=== PATIENT | female | born 1940 | race Caucasian/White ===

== ENCOUNTER 2020-02-24 10:24 | Emergency (ER) | payer MEDICARE, SELFPAY ==
[2020-02-24 10:38] VITALS: BP 159/90; PULSE 62; RESP 16; TEMP 37.2; O2SAT 100
--- NOTE | 2020-02-24 10:54 | ED.GENADULT ---
HPI - General Adult General Chief complaint: Fall Stated complaint: fall Time Seen by Provider: 02/24/20 10:54 Source: patient and RN notes reviewed Mode of arrival: ambulatory Limitations: no limitations History of Present Illness HPI narrative: 79-year-old female presents with complaints of diffused lower back pain for the past 10 days. Aleve, Aspirin (650mg last this morning at 08:00), ice and heat with little to no relief. Fell backwards on buttock 10 days while jumping backwards moving away from a snapping turtle she was trying to move out of harms way. Denies radiating pain, numbness, or tingling. Denies hitting head or loss of consciousness. No upper or lower extremity pain or weakness. Exacerbating factors consist of prolong standing and bending. Denies problems with urinating or having a bowel movement, LBM this am per patient and normal. No flank pain or hematuria or dysuria. The patient reports she have not been diagnosed with COVID-19. The patient reports she is not waiting for the results of a COVID-19 lab test. The patient reports she do not have fever, chills, weakness, fatigue, myalgia, or facial swelling. The patient reports she do not have a new or worsening cough or shortness of breath. Denies chest pain. The patient reports she do not have any rhinorrhea, congestion, sore throat, nausea, vomiting, abdominal pain, and diarrhea. Tolerating po intake well. Denies recent traveling. Denies concerns for COVID-19 or exposures been home since [id number] order except for essential household needs and return home. At this time, patient is not suspected of having COVID-19. Some parts of this dictation were generated by voice recognition software and may contain typographical and/or grammatical inaccuracies. Related Data Home Medications Medication Instructions Recorded Confirmed hydrocortisone valerate 0.2 % 1 applic TOPICAL BID PRN 08/30/19 topical cream hydrochlorothiazide 12.5 mg tablet 12.5 mg PO DAILY 08/31/19 08/31/19 Glucosamine Chondroitin 02/24/20 Prevagen 02/24/20 Probiotic 02/24/20 ciclopirox TOPICAL 02/24/20 Allergies Allergy/AdvReac Type Severity Reaction Status Date / Time No Known Allergies Allergy Unverified 08/30/19 13:43 Review of Systems Review of Systems: Narrative: CONSTITUTIONAL: Denies fever, chills, sweats. EYES: Denies visual changes, redness, discharge. ENT: Denies rhinorrhea, congestion, sore throat, otalgia. CARDIOVASCULAR: Denies chest pain, palpitations, edema. RESPIRATORY: Denies dyspnea, wheezing, cough. GASTROINTESTINAL: Denies abdominal pain, nausea, vomiting, diarrhea. GENITOURINARY: Denies dysuria, hematuria, abnormal discharge. SKIN: Denies rash or itching. MUSCULOSKELETAL: Complains of of diffused lower back pain. Denies joint pain or myalgia. NEUROLOGIC: Denies numbness or focal weakness. PSYCHIATRIC: Denies anxiety or depression. All systems reviewed & are unremarkable except as noted in HPI and below. [facility] Past Medical History Medical History (Updated 02/25/20 @ 00:01 by Rosana Maharaj) Carpal tunnel syndrome Elevated blood sugar Essential hypertension FH: glaucoma Mixed hyperlipidemia Obstructive sleep apnea syndrome Recurrent major depressive disorder, in remission Seasonal allergic rhinitis Surgical History Surgical History (Updated 02/24/20 @ 11:31 by CAROLYN Joaquin) History of carpal tunnel surgery History of hand surgery History of tubal ligation Family History Family History Mother Family history of hypercholesterolemia Family history of Alzheimer's disease Grandparent Family history of glaucoma Father Family history of pancreatic cancer Social History Social History (Updated 02/24/20 @ 11:31 by CAROLYN Joaquin) Smoking status: Never smoker Second hand tobacco smoke exposure: Yes Smoking end date: 09/22/81 Alcohol
== END 2020-02-24 11:21 | disposition home or self-care (01) ==
PROVIDERS: Emergency Provider Nurse Practitioner Family; PCP Family Medicine
DX: M54.5 Low back pain (principal); I10 Essential (primary) hypertension; R73.9 Hyperglycemia, unspecified; G47.33 Obstructive sleep apnea (adult) (pediatric); E78.2 Mixed hyperlipidemia; Z77.22 Contact with and (suspected) exposure to environmental tobacco smoke (acute) (chronic)
CPT/HCPCS: 81003; 99213; G0463

== ENCOUNTER → 2020-06-05 10:28 | Outpatient (CLI) | payer MEDICARE, SELFPAY ==
--- NOTE | ~2020-06-05 | MM_ITS ---
EXAMINATION: MM screening marry BI w john HISTORY: Screening mammogram TECHNIQUE: Craniocaudal and mediolateral oblique 3-D tomosynthesis images were obtained and synthetic 2-D images were generated. CAD analysis was submitted and interpreted. COMPARISON: 03/10/2019, 03/04/2018, 01/06/2017 bilateral digital screening mammogram examinations BREAST PARENCHYMAL COMPOSITION: There are scattered areas of fibroglandular density. FINDINGS: There is a biopsy marker on the left; history of prior benign left breast biopsies. Occasio nal bilateral benign calcifications. There is no evidence of suspicious mass, calcification, or archi tectural distortion to suggest malignancy in either breast. There has been no suspicious interval jordan nge. IMPRESSION: 1. No mammographic evidence of malignancy. 2. Recommend routine screening mammography in one year. BI-RADS Category 2: Benign finding(s). Reviewed, dictated and finalized at location A.
== END ==
PROVIDERS: PCP Family Medicine; Visit Provider Family Medicine
DX: Z12.31 Encounter for screening mammogram for malignant neoplasm of breast (principal)
CPT/HCPCS: 77063; 77067

== ENCOUNTER 2020-07-15 00:41 | Outpatient (CLI) | payer MEDICARE, SELFPAY ==
[2020-07-15 18:05] LABS: SARS-CoV-2 RNA PCR Negative
== END 2020-07-15 00:42 | disposition home or self-care (01) ==
LOC: ANHCOVIDDT 00:41
PROVIDERS: PCP Family Medicine; Visit Provider Internal Medicine Gastroenterology
DX: Z01.812 Encounter for preprocedural laboratory examination (principal); Z20.828 Contact with and (suspected) exposure to other viral communicable diseases
CPT/HCPCS: 87635; C9803; U0003

== ENCOUNTER 2020-07-18 00:28 | Day surgery (SDC) | payer MEDICARE, SELFPAY ==
[2020-07-10 13:03] VITALS: BMI 39.4
[2020-07-18 06:24] VITALS: BP 165/89; PULSE 69; RESP 16; TEMP 36.3; O2SAT 99; BMI 39.6
[2020-07-18] MEDS: LACTATED RINGERS 1,000 ML 150 ML IV CONT (06:34)
--- NOTE | 2020-07-18 07:17 | WPDANESEPPF ---
Anes - Initial Pre Proc Eval Procedure: Operation Date: 07/18/20 07:30 Proposed Procedures p Esophagogastroduodenoscopy and Screening Colonoscopy - Catarino Higginbotham MD Date/Time: 07/18/20 07:17 Surgeon: Catarino Higginbotham MD Pre Op Diagnosis: abd pain, nausea, neoplasm screening Patient Data Age: 79 Gender: F Height: 4 ft 11 in Weight: 88.9 kg Last Vital Signs Temp 97.3 F L 07/18/20 06:24 Pulse 69 07/18/20 06:24 Resp 16 07/18/20 06:24 BP 165/89 H 07/18/20 06:24 Pulse Ox 99 07/18/20 06:24 Allergies Allergy/AdvReac Type Severity Reaction Status Date / Time No Known Allergies Allergy Verified 07/18/20 06:23 Home Medications Medication Instructions Recorded Confirmed Type hydrocortisone valerate 0.2 % 1 applic TOPICAL BID PRN 08/30/19 07/10/20 History topical cream hydrochlorothiazide 12.5 mg tablet 12.5 mg PO DAILY 08/31/19 07/10/20 History losartan 50 mg tablet 50 mg PO DAILY #14 tablet 09/10/19 07/10/20 Rx fenofibrate nanocrystallized 48 mg See Rx Instructions .ROUTE 02/02/20 07/10/20 Rx tablet .COMPLEX #90 tablet rosuvastatin 10 mg tablet See Rx Instructions .ROUTE 02/02/20 07/10/20 Rx .COMPLEX #90 tablet Glucosamine Chondroitin 02/24/20 06/14/20 History ciclopirox TOPICAL 02/24/20 06/14/20 History fluoxetine 40 mg capsule 40 mg PO DAILY #90 cap 03/13/20 07/10/20 Rx peg 3350-electrolytes 236 240 ml PO Q10M #4000 ml 05/30/20 06/14/20 Rx gram-22.74 gram-6.74 gram-5.86 gram solution Patient hx anesthesia problems: none Family hx anesthesia problems: none PMFSH Past Medical History Medical History Carpal tunnel syndrome Depression Elevated blood sugar Essential hypertension FH: glaucoma Mixed hyperlipidemia Nausea Obstructive sleep apnea syndrome Recurrent major depressive disorder, in remission Seasonal allergic rhinitis Weight loss Surgical History Surgical History History of carpal tunnel surgery History of hand surgery History of tubal ligation Family History Family History Mother Family history of hypercholesterolemia Family history of Alzheimer's disease Grandparent Family history of glaucoma Father Family history of pancreatic cancer Social History Social History Smoking status: Never smoker Second hand tobacco smoke exposure: Yes Smoking end date: 09/22/81 Alcohol intake: current Substance use: never Substance use type: does not use Living arrangements: alone Gender identity (if verbalized by the patient): Female Spiritual care concerns: No Anes - Eval Final PreProcedure Day of Procedure 07/18/20 07:17 Patient weight: morbidly obese Heart: regular rate and rhythm Lungs: clear to auscultation Airway: Mallampati scale class III Neurological: alert and oriented Last oral intake: >/= 8 hours ASA classification: III Emergent: no Anesthetic plan: proceed Anesthesia type and monitoring: general GIVS and standard monitoring Informed Consent: The patient's anesthetic plan and its attendant risks and benefits were discussed with the patient/family/POA. Questions were solicited and answers provided to the satisfaction of the patient/family/POA.
[2020-07-18] MEDS: BENZOCAINE (*SP) 60 ML SPRAY CAN (HURRICAINE) 1 SPRAY MUCOUS MEM (07:38)
--- NOTE | 2020-07-18 07:59 | PM.HPGS ---
History of Present Illness History of Present Illness Consent: Risks, benefits, and alternatives have been discussed and questions answered. Patient agrees to proceed with procedure. Chief complaint: abd pain, nausea, neoplasm screening Narrative: Evie Bates is a 79 year old female with bloating and morning sickness but better daily, also due to have a colonoscopy Review of Systems Constitutional: Constitutional: Denies headache(s) and Denies weakness Eyes: Eyes: Denies blurry vision ENT: Reports Normal hearing present, Denies headache(s) and Denies neck pain Cardiovascular: Cardiovascular: Denies chest pain and Denies dyspnea Respiratory: Respiratory: Denies dyspnea Gastrointestinal: Gastrointestinal: Reports no additional gastrointestinal complaints Genitourinary: Genitourinary: Denies dysuria Musculoskeletal: Musculoskeletal: Denies neck pain Integumentary/Breasts: Skin/Breast: Denies dry skin Neurologic: Reports Normal hearing present, Denies headache(s) and Denies weakness Psychiatric: Psychiatric: Denies anxiety Endocrine: Endocrine: Denies change in body appearance Hematologic/Lymphatic: Hematologic/Lymphatic: Denies easy bleeding Allergic/Immunologic: Allergic/Immunologic: Denies urticaria PMFSH Past Medical History Medical History Carpal tunnel syndrome Depression Elevated blood sugar Essential hypertension FH: glaucoma Mixed hyperlipidemia Nausea Obstructive sleep apnea syndrome Recurrent major depressive disorder, in remission Seasonal allergic rhinitis Weight loss Surgical History Surgical History History of carpal tunnel surgery History of hand surgery History of tubal ligation Family History Family History Mother Family history of hypercholesterolemia Family history of Alzheimer's disease Grandparent Family history of glaucoma Father Family history of pancreatic cancer Social History Social History Smoking status: Never smoker Second hand tobacco smoke exposure: Yes Smoking end date: 09/22/81 Alcohol intake: current Substance use: never Substance use type: does not use Living arrangements: alone Gender identity (if verbalized by the patient): Female Spiritual care concerns: No Meds Home Medications and Allergies Home Medications Medication Instructions Recorded Confirmed Type hydrocortisone valerate 0.2 % 1 applic TOPICAL BID PRN 08/30/19 07/10/20 History topical cream hydrochlorothiazide 12.5 mg tablet 12.5 mg PO DAILY 08/31/19 07/10/20 History losartan 50 mg tablet 50 mg PO DAILY #14 tablet 09/10/19 07/10/20 Rx fenofibrate nanocrystallized 48 mg See Rx Instructions .ROUTE 02/02/20 07/10/20 Rx tablet .COMPLEX #90 tablet rosuvastatin 10 mg tablet See Rx Instructions .ROUTE 02/02/20 07/10/20 Rx .COMPLEX #90 tablet Glucosamine Chondroitin 02/24/20 06/14/20 History ciclopirox TOPICAL 02/24/20 06/14/20 History fluoxetine 40 mg capsule 40 mg PO DAILY #90 cap 03/13/20 07/10/20 Rx peg 3350-electrolytes 236 240 ml PO Q10M #4000 ml 05/30/20 06/14/20 Rx gram-22.74 gram-6.74 gram-5.86 gram solution Allergies Allergy/AdvReac Type Severity Reaction Status Date / Time No Known Allergies Allergy Verified 07/18/20 06:23 Vital Signs Vital Signs - 24 hr 07/18/20 06:24 Temperature 97.3 F L Pulse Rate 69 Respiratory Rate 16 Blood Pressure 165/89 H Pulse Oximetry 99 Exam Const: General: comfortable and no acute distress HENMT: General nose exam: Normal nares present Eyes: General: appearance normal, both eyes and all related structures Neck: Neck: no JVD Resp: Auscultation: clear to auscultation bilaterally Cardio: Rate: regular rate Rhythm: regular rhythm GI:
[2020-07-18 08:01] VITALS: BP 124/60; PULSE 68; RESP 24; O2SAT 94
[2020-07-18 08:11] VITALS: BP 108/61; PULSE 64; RESP 21; O2SAT 97
[2020-07-18 08:21] VITALS: BP 121/70; PULSE 64; RESP 16; O2SAT 96
--- NOTE | 2020-07-18 08:38 | SUR.PHASEII ---
Daughter Kristina attempted to be contacted multiple times. Intra-op nurse attempted x 2 and also left voicemails. Daughter returned voicemail at [id number], states she will be her in 10 minutes. pt waiting in room, provided drink. denies other needs.
== END 2020-07-18 08:49 | disposition home or self-care (01) ==
PROVIDERS: PCP Family Medicine; Visit Provider Internal Medicine Gastroenterology
PROC: 0DJ08ZZ Inspection of Upper Intestinal Tract, Via Natural or Artificial Opening Endoscopic (ICD-10-PCS; CPT 43235; principal; 2020-07-18 07:30)
DX: Z12.11 Encounter for screening for malignant neoplasm of colon (principal); K51.40 Inflammatory polyps of colon without complications; K29.50 Unspecified chronic gastritis without bleeding; K57.30 Diverticulosis of large intestine without perforation or abscess without bleeding; K64.8 Other hemorrhoids; I10 Essential (primary) hypertension; E78.2 Mixed hyperlipidemia; G47.33 Obstructive sleep apnea (adult) (pediatric); F32.5 Major depressive disorder, single episode, in full remission; E66.01 Morbid (severe) obesity due to excess calories; Z68.39 Body mass index [BMI] 39.0-39.9, adult
CPT/HCPCS: 45385; 43239; 88305; 88307; J2704; J7120

== ENCOUNTER → 2021-06-09 08:15 | Outpatient (CLI) | payer MEDICARE, SELFPAY ==
--- NOTE | ~2021-06-09 | MM_ITS ---
EXAMINATION: MM screening marry BI w john HISTORY: Screening mammogram TECHNIQUE: Craniocaudal and mediolateral oblique 3-D tomosynthesis images were obtained and synthetic 2-D images were generated. CAD analysis was submitted and interpreted. COMPARISON: 06/05/2020, 03/10/2019, 03/04/2018 bilateral digital screening mammogram examinations BREAST PARENCHYMAL COMPOSITION: There are scattered areas of fibroglandular density. FINDINGS: There is a biopsy marker on the left; history of prior benign left breast biopsies. Occasio nal benign calcifications. There is no evidence of suspicious mass, calcification, or architectural d istortion to suggest malignancy in either breast. There has been no suspicious interval change. IMPRESSION: 1. No mammographic evidence of malignancy. 2. Recommend routine screening mammography in one year. BI-RADS Category 2: Benign finding(s). Reviewed, dictated and finalized at location A.
== END ==
PROVIDERS: PCP Family Medicine; Visit Provider Family Medicine
DX: Z12.31 Encounter for screening mammogram for malignant neoplasm of breast (principal)
CPT/HCPCS: 77063; 77067

== ENCOUNTER 2021-07-11 14:12 | Outpatient (CLI) | payer MEDICARE, SELFPAY ==
--- NOTE | ~2021-07-11 | US_ITS ---
EXAMINATION: US art doppler w press LE BI DATE: 07/11/2021 14:50 INDICATION: Peripheral vascular disease in the lower limbs. TECHNIQUE: Segmental pressures and plethysmographic and Doppler waveforms of the brachial and lower e xtremity arteries were obtained. COMPARISON: None. FINDINGS: Right and left brachial artery pressures of 130 mm Hg and 149 mm Hg, respectively, are concordant (no rmal difference <= 30 mmHg). The right ankle-brachial index (KAMRON) is 1.22 (normal >= 0.9-1). The right great toe-brachial index (T BI) is 0.66 (normal >= 0.6-0.8). The right lower extremity segmental pressure gradients are normal (n ormal gradients <= 20-30 mmHg between adjacent levels on the same leg or the same levels on the two l egs). Arterial waveforms are triphasic at the right common femoral artery and biphasic in the remaini ng arteries of the right lower limb with brisk systolic upstrokes throughout. The left KAMRON is 1.11. The left TBI is 0.64. The left lower extremity segmental pressure gradients are increased between the left dorsalis pedis artery and the left popliteal and posterior tibial arterie s as well as the contralateral right dorsalis pedis artery. Arterial waveforms are triphasic at the l eft common femoral artery and biphasic in the more distal arteries with brisk systolic upstrokes thro ughout. IMPRESSION: 1. Normal KAMRON's and TBI's bilaterally. No significant arterial occlusive disease. Reviewed, dictated and finalized at location A. IMPRESSION: 1. Normal KAMRON's and TBI's bilaterally. No significant arterial occlusive diseas e.
== END 2021-07-11 14:13 | disposition home or self-care (01) ==
LOC: ANHIMG 14:13
PROVIDERS: PCP Family Medicine; Visit Provider Podiatrist Foot & Ankle Surgery
DX: I73.9 Peripheral vascular disease, unspecified (principal)
CPT/HCPCS: 93923

== ENCOUNTER 2022-08-16 09:55 | Outpatient (CLI) | payer MEDICARE, SELFPAY ==
--- NOTE | ~2022-08-16 | CT_ITS ---
EXAMINATION: CT abdomen pelvis w con DATE: 08/16/2022 10:50 INDICATION: Change in stool caliber TECHNIQUE: Computed tomography (CT) of the abdomen and pelvis was performed with 100 CC Omnipaque 350 intravenous contrast. Automated exposure control and iterative reconstruction technique were employe d. Exam dose: 968.39 mGy-cm total exam DLP. COMPARISON: None. FINDINGS: Right fat-containing foramen of Bochdalek hernia. The lung bases are clear of infiltrate or consolidation. No pericardial or pleural effusion. Small sliding hiatal hernia. There is a huge heterogeneous density mass of the medial segment of the left hepatic lobe and right h epatic lobe; differential diagnosis includes hepatocellular carcinoma, hepatic metastasis, cholangioc arcinoma. There are scattered hepatic probable cysts, measuring up to 10 mm. Calcification at the dependent aspect of the proximal gallbladder may be due to cholelithiasis or les s likely gallbladder wall calcification. No bile duct or pancreatic duct dilatation. No pancreatic mass lesion is evident. Up to 2.9 x 5 cm duodenal diverticulum. Normal morphology of the adrenal glands. Normal splenic size. Up to 10 x 14 mm aortocaval lymph node and 6.4 x 11.9 mm left periaortic lymph node. Small cortical cysts of each kidney. No suspicious renal space-occupying mass lesion or urinary tract calculus or hydroureteronephrosis. The urinary bladder, uterus and adnexal areas are unremarkable. There is atherosclerotic calcification but normal caliber of the abdominal aorta and iliac arteries. Normal appendix. There are numerous diverticula of the sigmoid and descending colon and to a lesser extent the transve rse colon; no CT evidence of diverticulitis. No bowel obstruction or intraperitoneal free air. Small fat-containing umbilical hernia. Severe burst fracture deformity of L4. Diffuse idiopathic skeletal hyperostosis of the thoracic spine. Prominent degenerative change at the apophyseal joints of the lumbar spine. Bilateral hip osteoarthritis. IMPRESSION: Huge heterogeneous mass of medial segment of left hepatic lobe and right hepatic lobe Scattered hepatic cysts Mild periaortic and aortocaval lymphadenopathy Duodenal diverticulum Small renal cortical cysts Diverticulosis of the colon; no CT evidence of diverticulitis Severe burst fracture deformity of L4 Diffuse idiopathic skeletal hyperostosis of the thoracic spine Reviewed, dictated and finalized at Location A. Reviewed, dictated and finalized at location B. ACE MASON
[2022-08-16 10:43] LABS: Estimated Glomerular Filt Rate 31
== END 2022-08-16 09:56 | disposition home or self-care (01) ==
PROVIDERS: PCP Family Medicine; Visit Provider Physician Assistant Medical
DX: R19.5 Other fecal abnormalities (principal); R16.0 Hepatomegaly, not elsewhere classified; R59.0 Localized enlarged lymph nodes; K57.10 Diverticulosis of small intestine without perforation or abscess without bleeding; N28.1 Cyst of kidney, acquired; K57.90 Diverticulosis of intestine, part unspecified, without perforation or abscess without bleeding; S32.041A Stable burst fracture of fourth lumbar vertebra, initial encounter for closed fracture; M48.14 Ankylosing hyperostosis [Forestier], thoracic region
CPT/HCPCS: 74177; Q9967

== ENCOUNTER 2022-08-21 08:48 | Outpatient (CLI) | payer MEDICARE, SELFPAY ==
[2022-08-21 09:59] LABS: Hematocrit 39.1 % (37.0-47.0); Hemoglobin 12.5 g/dL (12.0-15.0); Mean Corpuscular Hemoglobin 28.9 pg (26-34); Mean Corpuscular Volume 90.5 fl (80-100); Mean Platelet Volume 10.5 fl (7.4-10.4); Platelet Count Result 289 k/mm3 (150-375); Red Blood Count 4.32 M/mm3 (4.2-5.4); Red Cell Distribution Width 12.6 % (11.5-14.5); White Blood Count 4.6 K/mm3 (4.5-10.0)
[2022-08-21 10:06] LABS: Alanine Aminotransferase 16 U/L (6-35); Albumin Level 4.4 g/dL (3.5-5.1); Alkaline Phosphatase 44 U/L (38-126); Anion Gap 9 mmol/L (8-16); Aspartate Amino Transferase 44 U/L (14-36); Bilirubin,Total 0.4 mg/dL (0.2-1.3); Blood Urea Nitrogen 16 mg/dL (7-17); Calcium 9.4 mg/dL (8.4-10.2); Carbon Dioxide 21 mmol/L (22-30); Chloride 104 mmol/L (98-107); Estimated Glomerular Filt Rate 33; Glucose 112 mg/dL (65-110); INR 1.1; Potassium 4.4 mmol/L (3.4-5.0); Prothrombin Time 13.4 Seconds (11.1-14.7); Sodium 134 mmol/L (137-145)
[2022-08-26 14:57] LABS: Alpha Fetoprotein Tumor Marker 7.1 ng/mL (<6.1)
== END 2022-08-21 08:49 | disposition home or self-care (01) ==
LOC: ANHLAB 08:49
PROVIDERS: PCP Family Medicine; Visit Provider Nurse Practitioner
DX: R16.0 Hepatomegaly, not elsewhere classified (principal)
CPT/HCPCS: 36415; 80048; 80076; 82105; 85027; 85610

== ENCOUNTER → 2022-08-28 14:29 | Outpatient (CLI) | payer MEDICARE, SELFPAY ==
--- NOTE | ~2022-08-28 | MM_ITS ---
EXAMINATION: MM screening [facility] BI w john HISTORY: Screening mammogram TECHNIQUE: Craniocaudal and mediolateral oblique 3-D tomosynthesis images were obtained and synthetic 2-D images were generated. CAD analysis was submitted and interpreted. COMPARISON: 06/09/2021, 06/05/2020, 03/10/2019 BREAST PARENCHYMAL COMPOSITION: There are scattered areas of fibroglandular density. FINDINGS: No suspicious mass, calcification, or architectural distortion are identified in either gladys ast to suggest malignancy. There has been no suspicious interval change. IMPRESSION: 1. No mammographic evidence of malignancy. 2. Recommend routine screening mammography while the patient remains in good health. BI-RADS Category 1: Negative Reviewed, dictated and finalized at location A. ING JOGGER IMPRESSION: 1. No mammographic evidence of malignancy. 2. Recommend routine screening mammography while the patient remains in good he alth. BI-RADS Category 1: Negative
== END ==
PROVIDERS: PCP Family Medicine; Visit Provider Family Medicine
DX: Z12.31 Encounter for screening mammogram for malignant neoplasm of breast (principal)
CPT/HCPCS: 77063; 77067

== ENCOUNTER 2023-04-06 10:40 | Emergency (ER) | payer MEDICARE, SELFPAY ==
[2023-04-06] VITALS (7 sets, daily range): BP systolic 131–161; BP diastolic 77–87; PULSE 79–87; RESP 12–24; TEMP 36.1; O2SAT 97–100
--- NOTE | ~2023-04-06 | XR_ITS ---
XR chest 1V portable DATE: 04/06/2023 12:14 INDICATION: Epigastric pain. Nausea. TECHNIQUE: Portable AP chest on 04/06/2023 1213 hours COMPARISON: None FINDINGS: Heart size appears within normal range. Is aortic calcification and mild unfolding. Right Port-A-Cath catheter tip overlies superior vena cava. There is minimal atelectasis in the lower lung zones. The lungs otherwise appear clear. No pleural effusion or pulmonary vascular congestion or pneumothorax. There is osteopenia. Degenerative spurring of the thoracic spine. IMPRESSION: Minimal atelectasis at the lung bases Right Port-A-Cath Reviewed, dictated and finalized at location A.
--- NOTE | 2023-04-06 11:54 | ECG_ITS ---
Measurements Intervals [place] Rate: 77 P: 41 OH: 144 QRS: 2 QRSD: 72 T: 22 QT: 372 QTc: 421 Interpretive Statements SINUS RHYTHM BASELINE WANDER- V5-V6 NORMAL ECG NO PREVIOUS ECG AVAILABLE FOR COMPARISON Electronically Signed On 04-06-2023 16:22:45 CDT by Judah Rg D.O.
--- NOTE | 2023-04-06 11:57 | ED.GENADULT ---
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 She reports a dull and achy pain in her epigastrium that is worse after eating. She reports decreased p.o. intake over the past few weeks, worsening over the past 10 days secondary to epigastric pain and fear of pain with eating. She reports nausea, no vomiting. Currently her pain is a 6 out of 10 in the epigastrium. States she came to the ED today because she feels dehydrated due to decreased p.o. intake for the past 2 days. She does report eating almost a full piece of toast with a half a piece of cheese and half a cup of coffee this morning. Patient states she is currently seeing her oncologist Dr. Calloway at [facility] for treatment of cholangiocarcinoma and hepatic adenocarcinoma. She was treated with chemo and radiation starting in October and is currently taking a chemo pill that she started 1 month ago. She has an appointment scheduled in 3 days with her oncologist to discuss if they want to continue the chemo pill given the patient believes that the epigastric pain is worsened since starting this chemo pill. She denies chest pain or shortness of breath, fever, urinary complaints, diarrhea, cough or congestion. States her last CT scan was 6 weeks ago which showed new masses in the liver. Related Data Home Medications Medication Instructions Recorded Confirmed cetirizine 10 mg tablet 10 mg PO DAILY PRN 09/30/22 09/30/22 fluoxetine 40 mg capsule (Prozac) 40 mg PO DAILY 03/31/23 Allergies Allergy/AdvReac Type Severity Reaction Status Date / Time No Known Allergies Allergy Verified 04/06/23 11:34 Review of Systems Review of Systems: CONSTITUTIONAL: Denies fever, chills EYES: Denies visual changes, redness, or discharge. ENT: Denies rhinorrhea, congestion, sore throat, or otalgia. CARDIOVASCULAR: Denies chest pain, palpitations, or edema. RESPIRATORY: Denies cough or dyspnea. GASTROINTESTINAL: See HPI GENITOURINARY: Denies dysuria or hematuria. SKIN: Denies rash or itching. MUSCULOSKELETAL: Denies back pain, joint pain, or myalgia. NEUROLOGIC: Denies headache, numbness, dizziness, or weakness. PSYCHIATRIC: Denies anxiety or depression. [facility] Past Medical History Medical History Bowel habit changes Carpal tunnel syndrome Cholangiocarcinoma CKD (chronic kidney disease) Depression Elevated blood sugar Essential hypertension Family history of pancreatic cancer FH: glaucoma GERD (gastroesophageal reflux disease) Hepatic adenocarcinoma Liver mass Mixed hyperlipidemia Nausea Obstructive sleep apnea syndrome Prediabetes Recurrent major depressive disorder, in remission Seasonal allergic rhinitis Vitamin B12 deficiency Vitamin D deficiency Weight loss Surgical History Surgical History History of carpal tunnel surgery History of hand surgery History of tubal ligation Family History Family History Mother Family history of hypercholesterolemia Family history of Alzheimer's disease Grandparent Family history of glaucoma Father Family history of pancreatic cancer Social History Social History Smoking status: Former smoker Second hand tobacco smoke exposure: Yes Smoking end date: 09/22/81 Alcohol intake: current Substance use: never Substance use type: does not use Lack of Transportation: No Lack of Food: Never True Current Housing: I Have Housing Concerned About Future Housing: No Difficulty Paying Gas/Electric Bills: No Diffi
[2023-04-06] MEDS: ONDANSETRON INJ 4 MG/2 ML VIAL IV PUSH (12:40)
[2023-04-06] MEDS: SODIUM CHLORIDE 0.9% IV 1,000 ML 999 ML IV CONT (12:40)
[2023-04-06] MEDS: BELLADONNA ALK/PHENOB ELIX 10 ML, MAG HYDROX/ALUMINUM HYD/SIMETH 30 ML, LIDOCAINE HCL 2... PO (12:40)
[2023-04-06] MEDS: LORazepam INJ (*CRX) 2 MG/ML VIAL 0.5 MG IV PUSH (12:41)
[2023-04-06] MEDS: FAMOTIDINE 20 MG/2 ML VIAL IV PUSH (12:41)
[2023-04-06] MEDS: HYDROmorphone HCL INJ (*CRX) 1 MG/ML SYR 0.5 MG IV PUSH (12:41)
[2023-04-06 12:45] LABS: Basophils Percent Auto 0.4 % (0.2-1.2); Eosinophils Percent Auto 0.1 % (0-4.4); Hematocrit 36.9 % (37.0-47.0); Hemoglobin 11.7 g/dL (12.0-15.0); Immature Granulocyte Absolute 0.06 K/mm3 (0.00-0.031); Immature Granulocyte Percent A 0.7 % (0-0.5); Lymphocytes Absolute Auto 0.48 K/mm3 (0.9-3.2); Lymphocytes Percent Auto 5.8 % (18.3-44.2); Mean Corpuscular HGB Conc 31.7 g/dl (32-36); Mean Corpuscular Hemoglobin 31.3 pg (26-34); Mean Corpuscular Volume 98.7 fl (80-100); Mean Platelet Volume 10.4 fl (7.4-10.4); Monocytes Absolute Auto 0.4 K/mm3 (0.1-0.6); Monocytes Percent Auto 4.4 % (2.6-8.5); Neutrophils Absolute Auto 7.4 K/mm3 (1.3-6.7); Neutrophils Percent Auto 88.6 % (45.5-73.1); Platelet Count Result 273 k/mm3 (150-375); Red Blood Count 3.74 M/mm3 (4.2-5.4); White Blood Count 8.3 K/mm3 (4.5-10.0)
[2023-04-06 12:55] LABS: Alanine Aminotransferase 16 U/L (6-35); Albumin Level 3.4 g/dL (3.5-5.1); Alkaline Phosphatase 124 U/L (38-126); Anion Gap 8 mmol/L (8-16); Aspartate Amino Transferase 22 U/L (14-36); Blood Urea Nitrogen 17 mg/dL (7-17); Calcium 8.7 mg/dL (8.4-10.2); Carbon Dioxide 22 mmol/L (22-30); Chloride 102 mmol/L (98-107); Estimated Glomerular Filt Rate 60; Glucose 116 mg/dL (65-110); Lipase 162 U/L (23-300); Potassium 4.3 mmol/L (3.4-5.0); Sodium 132 mmol/L (137-145)
[2023-04-06 13:06] LABS: Troponin I < 0.012 ng/mL (0.000-0.034)
[2023-04-06 15:25] LABS: Appearance Urine Cloudy (Clear); Bacteria Urine 3+ /hpf; Bilirubin Urine Negative (Negative); Blood Urine Negative (Negative); Color Urine Dark Yellow (Yellow); Glucose Urine UA Negative (Negative); Ketones Urine Negative (Negative); Leukocyte Esterase Ur Negative LEU/UL (Negative); Nitrate Urine Negative (Negative); Non Pathogenic Casts 0-2; Protein Urine 1+ mg/dL (Negative); RBC Urine 0-2 /hpf (0-2); Specific Grav Ur 1.022 (1.001-1.035); Squamous Epithelial Cell Urine Many /hpf (Few); WBC Urine 0-5 /hpf; pH Urine 6.5 (5.0-9.0)
[2023-04-06 15:30] LABS: Add Urine Microscopic? YES
== END 2023-04-06 17:02 | disposition home or self-care (01) ==
PROVIDERS: Emergency Provider Physician Assistant; PCP Family Medicine
DX: R10.13 Epigastric pain (principal); C22.1 Intrahepatic bile duct carcinoma; I12.9 Hypertensive chronic kidney disease with stage 1 through stage 4 chronic kidney disease, or unspecified chronic kidney disease; N18.9 Chronic kidney disease, unspecified; E78.2 Mixed hyperlipidemia; E53.8 Deficiency of other specified B group vitamins; E55.9 Vitamin D deficiency, unspecified; R73.03 Prediabetes; G47.33 Obstructive sleep apnea (adult) (pediatric); K21.9 Gastro-esophageal reflux disease without esophagitis; F41.9 Anxiety disorder, unspecified; F32.A Depression, unspecified; Z87.891 Personal history of nicotine dependence; Z79.899 Other long term (current) drug therapy
CPT/HCPCS: 36415; 71045; 80053; 81001; 83690; 84484; 85025; 93005; 96361; 96374; 96375; 99284; A9270; J1170; J2060; J2405; J7030

== ENCOUNTER 2023-10-02 12:48 | Outpatient (CLI) | payer MEDICARE, SELFPAY | END 2023-10-02 12:49 | disposition home or self-care (01) | LOC: ANHAUDASC 12:49 | PROVIDERS: PCP Family Medicine; Visit Provider Physician Assistant | DX: H90.3 Sensorineural hearing loss, bilateral (principal) | CPT/HCPCS: 92557; 92567 ==

== ENCOUNTER 2025-04-26 14:11 | Inpatient (IN) | payer MEDICARE, SELFPAY ==
--- NOTE | ~2025-04-26 | US_ITS ---
EXAMINATION: US paracentesis abd w/image DATE: 04/27/2025 14:01 INDICATION: Malignant ascites TECHNIQUE: The procedure and its risks and benefits were discussed with the patient. Potential risks discussed included bleeding and infection. The skin was prepped and draped in sterile fashion. 1% lid ocaine was used for local anesthesia. Under ultrasound guidance, a 5 Fr catheter with trochar was adv anced into the ascites in the left lower quadrant. Fluid was aspirated into vacuum bottles. The [place] ter was removed, and a dressing was applied. There were no immediate complications. FINDINGS: Ultrasound images demonstrate ascites and the catheter within the fluid. IMPRESSION: 1. Successful ultrasound-guided paracentesis yielding 4700 mL of straw-colored fluid. Reviewed, dictated and finalized at location A.
--- NOTE | ~2025-04-26 | CT_ITS ---
EXAMINATION: CT abdomen pelvis wo con DATE: 04/26/2025 15:44 INDICATION: Colitis TECHNIQUE: Computed tomography (CT) of the abdomen and pelvis was performed without intravenous contr ast. The dose-length product was 1112.62 mGy-cm. Automated exposure control and iterative reconstruct ion technique were employed. COMPARISON: CT dated 08/11 01/21 FINDINGS: Small pleural effusions. Large amount of ascites. Large 10.5 x 6.7 cm hepatic mass containi ng internal coarse calcifications, consistent with malignancy until proven otherwise. The spleen, cleaning creas, adrenal glands and kidneys are unremarkable. Nonobstructive bowel gas pattern. Chronic L4 burs t fracture unchanged. No significant vascular abnormality. IMPRESSION: 1. Complex 10.5 cm hepatic mass, consistent with malignancy, most likely primary hepatocellular or me tastatic disease. 2: Large amount of ascites. 3: Small pleural effusions. Reviewed, dictated and finalized at location A. IMPRESSION: 1. Complex 10.5 cm hepatic mass, consistent with malignancy, most likely primar y hepatocellular or metastatic disease. 2: Large amount of ascites. 3: Small pleural effusions.
[2025-04-26 14:36] VITALS: BP 179/93; PULSE 77; RESP 16; TEMP 36.6; O2SAT 100
[2025-04-26] MEDS: ONDANSETRON INJ 4 MG/2 ML VIAL IV PUSH ×2 (14:47→18:18)
[2025-04-26] MEDS: SODIUM CHLORIDE 0.9% IV 1,000 ML 999 ML IV CONT (14:47)
[2025-04-26 14:54] LABS: Hematocrit 35.4 % (37.0-47.0); Hemoglobin 10.9 g/dL (12.0-15.0); Immature Granulocyte Percent A 1.0 % (0-0.5); Lymphocytes Absolute Auto 0.39 K/mm3 (0.9-3.2); Mean Corpuscular HGB Conc 30.8 g/dl (32-36); Mean Corpuscular Hemoglobin 28.4 pg (26-34); Mean Corpuscular Volume 92.2 fl (80-100); Nucleated Red Blood Cells Absolute Auto 0.000 K/mm3 (0.0-0.012); Nucleated Red Blood Cells Perc 0.0 % (0.0-0.2); Platelet Count Result 334 k/mm3 (150-375); Red Blood Count 3.84 M/mm3 (4.2-5.4); White Blood Count 5.7 K/mm3 (4.5-10.0)
--- OUTSIDE RECORDS SUMMARY | 2025-04-26 15:08 | XMS_ITS ---
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 Past Treatment and Therapy Plans ONCOLOGY TREATMENT Plan Name Start Date Discontinue Date Treatment Medications Discontinue Reason Plan Provider Cycles BILIARY TRACT (GEMCITABIN E OXALIPLATIN ) Q14 DAYS 10/23/2022 02/21/2023 gemcitabine (Gemzar)gemciti bine (Gemzar) infusion (38 mg/ml)gemcitibi ne (Gemzar) infusion (powder)oxalipl atin (Eloxatin) Infusion Not Effective Trinh Calloway MD 7 of 12 cycles started Radiation Treatments * Course C2:Liver_ReTx 11/22/2024 - 12/10/2024 Treatment Period Energy Fraction Dose Fractions Total Dose Plans Planned #Liver_Retx1 11/22/2024 - 12/10/2024 15 / 15 5,250 cGy Reference Points Delivered PTV_ReTx 11/22/2024 - 12/10/2024 5,250 cGy * Course C1:Liver_SBRT 12/02/2022 - 12/11/2022 Treatment Period Energy Fraction Dose Fractions Total Dose Plans Planned #Liver_SBRT 12/02/2022 - 12/11/2022 5 / 5 3,500 cGy Reference Points Delivered PTV 12/02/2022 - 12/11/2022 3,500 cGy Lifetime Dose Tracking * Chemical Lifetime Dose Automatic Entry Manual Entr y Dose Length Product 11,336.9 mGy-cm 11,336.9 mGy-cm 0 mGy-cm
--- OUTSIDE RECORDS SUMMARY | 2025-04-26 15:08 | XMS_ITS | Clinical Summary ---
Author Organization [facility] Address [address] [facility] [place] [address] Care Team Providers Care Manager Of Warehouse Name Role Phone Laila Amador MD Primary Care Provider [phone] Trinh Calloway MD Unavailable [phone] Source Comments [facility],non-owned Affiliates and Associated Physician Practices is amultiple site organization consisting of ambulatory clinics and hospital sitesin [place], [place], [place] and [place]. This disclosure is being madepursuant to the Care Everywhere program and may not contain all information available regarding this patient. Last updated 18.[facility] Allergies No known active allergies Medications * Be aware that medications may not be up to date on this document. Alwaysverify current medications with the patient. ergocalciferol (Drisdol) 1.25 MG (36947 UT) capsule Take 1 (one) capsule by mouth every 7 days Active pantoprazole EC (Protonix) 40 MG tablet Take 1 (one) tablet by mouth once daily 90 tablet 3 Active traMADol (Ultram) 50 MG tablet Take 1 (one) tablet by mouth every 6 hours as needed pain 3 Active hydrOXYzine pamoate (Vistaril) 25 MG capsule 4 Active losartan (Cozaar) 50 MG tablet Take 1 (one) tablet by mouth once daily 4 Active FLUoxetine (PROzac) 20 MG capsule Take 3 (three) capsules by mouth once daily Takes 2 daily 4 Active cetirizine (ZyrTEC) 10 MG tablet Active DULoxetine (Cymbalta) 60 MG capsule Take 1 (one) capsule by mouth once daily Active ondansetron, disintegrating, (Zofran ODT) 4 MG tablet Take 1 tablet thirty minutes before each radiation treatment. Then, use 1 tablet every 6 hours as needed for nausea. Allow tablet to dissolve on the tongue. 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 Staging:Clinical stage from 09/12/2022:Stage IIIB(cT2, cN1, cM0) - Signed by Trinh Calloway MD on 02/21/2023 Encounters Date Type Department Care Team Description 04/22/2025 Orders Only [facility] - Hematology/Oncolo gy [address] [place] [phone] Trinh Calloway MD Cholangiocarcinoma (HCC) 03/15/2025 1:01 PM CDT - 03/15/2025 11:59 PM CDT Hospital Encounter [facility] RAD ONC [address] [place] [address] Erica Jang MD Discharge Disposition: Home or Self Care 03/15/2025 11:00 AM CDT Office Visit [facility] - Hematology/On[facility]o gy [address] [place] [phone] Desmond Harris MD Cholangiocarcinoma (HCC) (Primary Dx); Cancer associated pain; Chemotherapy-induced peripheral neuropathy (HCC); Goals of care, counseling/discussion 03/15/2025 Travel 03/08/2025 12:03 PM CDT - 03/08/2025 11:59 PM CDT Hospital Encounter [facility] MRI [address] [place] [address] Erica Jang MD Discharge Disposition: Home or Self Care 03/08/2025 11:29 AM CDT - 03/08/2025 12:02 PM CDT Hospital Encounter [facility] CAT SCAN [address] [place] [address] Erica Jang MD Discharge Disposition: Home or Self Care 03/08/2025 Travel 02/28/2025 Telephone [facility] RAD ONC [address] [place] [address] Tawana Borges RN Future Appointment 02/28/2025 Orders Only [facility] RAD ONC [address] [place] [address] Ronn Landon MD [facility] 02/09/2025 10:40 AM CDT Office Visit [facility] - Hematology/Oncolo gy [address] [place] [phone] Trinh Calloway MD Cholangiocarcinoma (HCC) (Primary Dx); Goals of care, counseling/discussion; Chemotherapy-induced peripheral neuropathy (HCC) 02/09/2025 10:00 AM CDT - 02/09/2025 11:59 PM CDT Hospital Encounter [facility] CANCER CARE DRAWSTATION [address] [facility] [place] [address] Trinh Calloway MD Discharge Disposition: Home or Self Care 02/09/2025 Travel 01/28/2025 Orders Only [facility] - Hematology/Oncolo gy [address] [place] [address] Trinh Calloway MD Cholangiocarcinoma (HCC) from Last 3 Months Family History Medical History Relation Name Comments Cancer - Pancreatic Father Relation Name Status Comments Father Social History Tobacco Use Types Packs/Day Years Used Date Smoking Tobacco: Former Cigarettes Q uit: 1982 Passive Smoke Exposure: Never Smokeless Tobacco: Never Tobacco Cessation:Counseling Given: Not Answered Alcohol Use Standard Drinks/Week Comments Not Currently 1 (1 standard drink = 0.6 oz pur e alcohol) very litte AUDIT-C Answer Date Recorded Q1: How often do you have a drink containing alc ohol? Never 09/04/2023 Average Number of Drinks Not on file 023 Frequency of Binge Drinking Not on file 08/22 PHQ-2 Answer Date Recorded Patient Health Questionnaire-2 Score 4 02/09/2025 Comments No Sex and Gender Information Value Date Recorded Sex Assigned at Not on file Legal Sex Female 10:21 AM CDT Gender Identity Female 12/31/2023 8:55 AM CDT Sexual Orientation Not on file Last Filed Vital Signs Vital Sign Reading Time Taken Comments Blood Pressure 153/86 03/15/2025 1:22 PM CDT Pulse 78 03/15/2025 1:22 PM CDT Temperature 36.2 C (97.1 F) 03/15/2025 1:22 PM CDT Respiratory Rate 18 03/15/2025 1:22 PM CDT Oxygen Saturation 98% 03/15/2025 1:22 PM CDT Inhaled Oxygen Concentration 99% 10/18/2022 8 :50 AM [facility] Weight 82.7 kg (182 lb 6.4 oz) 03/15/2025 1:22 P M CDT Height 147.3 cm (4' 10) 11/10/2024 10:25 AM [facility] Body Mass Index 38.12 11/10/2024 10:25 AM [facility] Plan of Treatment Upcoming Encounters Date Type Department Care Team (Late st Contact Info) Description 06/14/2025 11:00 AM CDT Office Visit [facility] - Hematology/Oncology [address] [place] [phone] Trinh Calloway MD [address] [facility] [address] [place] [address] 07/01/2025 2:00 PM CDT Appointment [facility] CAT SCAN [address] [place] [phone] Erica Jang MD [address] [place] [address] 07/01/2025 2:30 PM CDT Appointment [facility] MRI [address] [place] [address] Erica Jang MD [address] [place], [place] [phone] 07/07/2025 10:30 AM CDT Appointment [facility] RAD ONC [address] [place] [address] Erica Jang MD [address] [place], [place] [phone] Health Maintenance Due Date Last Done Comments BONE DENSITY TESTING 1942 DTAP/TDAP/TD VACCINES (1 - Tdap) 1961 PNEUMOCOCCAL VACCINE 50+ (1 of 2 - PCV) 1961 ZOSTER VACCINE (1 of 2) 1961 Respiratory Syncytial Virus (RSV) Vaccine Pt: or over 60 yrs (1 - 1-dose 75+ series) 2017 COVID-19 VACCINE (2 - Pfizer risk series) 04/25/2022 04/04/2022 MEDICARE AWV CALENDAR YEAR 2024 INFLUENZA VACCINE (#1) 2025 DEPRESSION SCREENING Completed 02/09/2025, 11/20/2022 HEPATITIS B VACCINE Aged Out No longe r eligible based on patient's age to complete this topic HIB VACCINE Aged Out No longer eligi ble based on patient's age to complete this topic HPV VACCINE Aged Out No longer eligi ble based on patient's age to complete this topic MENINGOCOCCAL (Group B) VACCINE SHARED DECISION-MAKING Aged Out No longer eligible based on patient's age to complete this topic MENINGOCOCCAL GROUPS A/C/Y/W VACCINE Aged Out No longer eligible b ased on patient's age to complete this topic Medical Devices Implanted Type Area Sander And Polisher Device Identifier Shelf Expiration Date Model / Serial / Lot Port Implinfn Powerport Clrvu Argd Earnestine Implanted:Qty: 1 on 10/18/2022 at [facility] Right: Chest [employer] 12/21/2023 [id number] / / [id number] Description:IMPLANTED BY DR. LOU Procedures Procedure Name Priority Date/Time Associated Diagnosis Comments MRI ABDOMEN W MRCP WWO CONT W3D Routine 03/08/2025 1:[address] CHEST WO CONTRAST Routine 03/08/2025 11:39 AM CDT Cholangiocarcinoma ALPHA FETOPROTEIN BLOOD TUMOR MARKER STAT 02/09/2025 10:08 AM CDT Cholangiocarcinoma (HCC) COMPREHENSIVE METABOLIC PANEL STAT 02/09/2025 10:08 AM CDT Cholangiocarcinoma (HCC) CBC W AUTO DIFFERENTIAL STAT 02/09/2025 10:08 AM CDT Cholangiocarcinoma (HCC) TSH REFLEX FREE T4 Routine 02/09/2025 10 :08 AM CDT Cholangiocarcinoma (HCC) from Last 3 Months Results * MRI Abdomen W Mrcp Wwo Cont W3D (03/08/2025 1:39 PM CDT) Anatomical Region Laterality Modality Abdomen Magnetic Resonan ce 03/09/2025 9:24 AM CDT Impressions 03/09/2025 10:23 PM CDT Impression: 1.Similar appearance of nodular enhancement at the anterolateral periphery of the treatment cavity, new enhancement at the inferior aspect of the cavity and a new area of intrahepatic biliary ductal dilatation and enhancement in hepatic segment 8. A loop of colon abuts the area of nodular enhancement at the anterior lateral aspect of the treatment cavity without a fat plane to separate them, tumor invasion into this loop of colon cannot be excluded. Overall, multiple findings suggest local disease progression versus less likely posttreatment changes. 2.A few cystic areas in segment 7 are increased in size and now demonstrate mild peripheral enhancement, attention on follow-up is suggested. 3.A few previously seen cystic areas in hepatic segment 7 are increased in size and now demonstrates peripheral enhancement (for example series 16, image 50 and 61), suspicious for metastasis, attention on follow-up is suggested. 4.An extracapsular nodular lesion abutting the lateral surface of the right hemiliver (series 4 image 22) with contrast enhancement and diffusion restriction is suspicious for metastatic disease. 5.Grossly unchanged common bile duct dilation likely related to reservoir effect. Report dictated by Rufino Rod MD (vice president and portfolio manager). I, Ervin Cárdenas MD have personally reviewed and interpreted this examination/study. > Interpreting Provider: Ervin Cárdenas MD on 03/09/2025 10:23 PM Narrative 03/09/2025 10:23 PM CDT PROCEDURE: MRI ABDOMEN W MRCP WWO CONT W3D DATE/TIME OF EXAM: 03/08/2025 1:39 PM CLINICAL INFORMATION: None relevant/not provided if blank. Indication: C22.1: Cholangiocarcinoma (HCC) Additional History: COMPARISON: MRI abdomen 07/14/2024 TECHNIQUE: MRI of the abdomen was performed prior to and following the uneventful administration of 16 mL of Multihance intravenous gadolinium contrast according to standard protocol, including dynamic imaging for MRCP. Image data was analyzed on a dedicated 3-D workstation for the MRCP portion of the exam. Findings: Lower Chest: Normal. Hepatobiliary system Liver morphology: Normal size with smooth surface contour. Steatosis: None. Varices: None. Spleen: Normal. Ascites: Small volume. Focal liver observations A large necrotic mass corresponding to the patient's known treated cholangiocarcinoma is redemonstrated involving hepatic segments 4A/B, 5 and 6. Similar appearance of nodular enhancement along the anterior-lateral periphery of the cavity is seen. This region abuts a loop of colon without a distinct fat plane them (series 6 image 29), tumor invasion into this loop of colon is not entirely excluded. There is increased nodular enhancement at the inferior aspect of the cavity (measuring 3.4 x 1.3 cm, series 16 image 30) and a new area of mild intrahepatic biliary ductal dilatation and enhancement in hepatic segment 8 (3.8 x 2.2 cm, series 16 image 53). A few previously seen cystic areas in hepatic segment 7 are increased in size and now demonstrates peripheral enhancement (for example series 16, image 50 and 61), suspicious for metastatic disease. An extracapsular nodular lesion abutting the lateral surface of the right hemiliver (series 4 image 22) with contrast enhancement and diffusion restriction is suspicious for metastatic disease. Patchy surrounding hyperemia is seen again around the cavity likely related to post-treatment changes. Numerous additional scattered cystic lesions are seen again. Hepatic vasculature Portal and hepatic veins: Patent. Arterial anatomy: Conventional. 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 Retroperitoneum Adrenals: Normal. Kidneys: Scattered renal cysts bilaterally. Lymph nodes: No lymphadenopathy. Gastrointestinal: Colonic diverticulosis and a small hiatal hernia. Otherwise, the imaged bowel and mesentery are normal. Other findings: Multilevel degenerative changes in the visualized spine including old compression fracture deformities in the lumbar spine. MRCP: The gallbladder is surgically absent. There is new mild intrahepatic biliary ductal dilatation within hepatic segment 8, series 16 image 53, concerning for disease recurrence. Grossly unchanged dilation of the common bile duct up to 1.2 cm which likely related to reservoir effect. No filling defect or stricture is seen in the biliary system. The pancreas appears normal. The pancreatic duct is nondilated. Procedure Note Ervin Cárdenas MD - 03/09/2025 PROCEDURE: MRI ABDOMEN W MRCP WWO CONT W3D DATE/TIME OF EXAM: 03/08/2025 1:39 PM CLINICAL INFORMATION: None relevant/not provided if blank. Indication: C22.1: Cholangiocarcinoma (HCC) Additional History: COMPARISON: MRI abdomen 07/14/2024 TECHNIQUE: MRI of the abdomen was performed prior to and following the uneventful administration of 16 mL of Multihance intravenous gadolinium contrast according to standard protocol, including dynamic imaging for MRCP. Image data was analyzed on a dedicated 3-D workstation for theMRCP portion of the exam. Findings: Lower Chest: Normal. Hepatobiliary system Liver morphology: Normal size with smooth surface contour. Steatosis: None. Varices: None. Spleen: Normal. Ascites: Small volume. Focal liver observations A large necrotic mass corresponding to the patient's known treated cholangiocarcinoma is redemonstrated involving hepatic segments 4A/B, 5and 6. Similar appearance of nodular enhancement along the anterior-lateral periphery of the cavity is seen. This region abuts a loop of colonwithout a distinct fat plane them (series 6 image 29), tumor invasion into this loop of colon is not entirely excluded. There is increased nodular enhancement at the inferior aspect of the cavity (measuring 3.4x 1.3 cm, series 16 image 30) and a new area of mild intrahepatic biliary ductal dilatation and enhancement in hepatic segment 8 (3.8 x 2.2 cm, series 16 image 53). A few previously seen cystic areas in hepaticsegment 7 are increased in size and now demonstrates peripheral enhancement (for example series 16, image 50 and 61), suspicious for metastatic disease.An extracapsular nodular lesion abutting the lateral surface of the right hemiliver (series 4 image 22) with contrast enhancement and diffusion restriction is suspicious for metastatic disease. Patchy surrounding hyperemia is seen again around the cavity likelyrelated to post-treatment changes. Numerous additional scattered cystic lesionsare seen again. Hepatic vasculature Portal and hepatic veins: Patent. Arterial anatomy: Conventional. Redemonstrated chronicocclusion/stenosis at the SMA origin. Retroperitoneum Adrenals: Normal. Kidneys: Scattered renal cysts bilaterally. Lymph nodes: No lymphadenopathy. Gastrointestinal: Colonic diverticulosis and a small hiatal hernia. Otherwise, the imaged bowel and mesentery are normal. Other findings: Multilevel degenerative changes in the visualized spine including old compression fracture deformities in the lumbar spine. MRCP: The gallbladder is surgically absent. There is new mild intrahepatic biliary ductal dilatation within hepatic segment 8, series 16 image 53, concerning for disease recurrence. Grossly unchanged dilation of thecommon bile duct up to 1.2 cm which likely related to reservoir effect. Nofilling defect or stricture is seen in the biliary system. The pancreas appears normal. The pancreatic duct is nondilated. Impression: 1.Similar appearance of nodular enhancement at the anterolateralperiphery of the treatment cavity, new enhancement at the inferior aspect of the cavity and a new area of intrahepatic biliary ductal dilatation and enhancement in hepatic segment 8. A loop of colon abuts the area ofnodular enhancement at the anterior lateral aspect of the treatment cavitywithout a fat plane to separate them, tumor invasion into this loop of coloncannot be excluded. Overall, multiple findings suggest local diseaseprogression versus less likely posttreatment changes. 2.A few cystic areas in segment 7 are increased in size and nowdemonstrate mild peripheral enhancement, attention on follow-up is suggested. 3.A few previously seen cystic areas in hepatic segment 7 are increasedin size and now demonstrates peripheral enhancement (for example series 16, image 50 and 61), suspicious for metastasis, attention on follow-up is suggested. 4.An extracapsular nodular lesion abutting the lateral surface of theright hemiliver (series 4 image 22) with contrast enhancement and diffusion restriction is suspicious for metastatic disease. 5.Grossly unchanged common bile duct dilation likely related toreservoir effect. Report dictated by Rufino Rod MD (vice president and portfolio manager). Ervin Harmon MD have personally reviewed and interpreted this examination/study. > Interpreting Provider: Ervin Cárdenas MD on 03/09/2025 10:23 PM Ronn Landon MD MR ORDERABLES Final Re sult * CT Chest Wo Contrast (03/08/2025 11:39 AM CDT) Anatomical Region Laterality Modality Chest Computed Tomogra phy 03/08/2025 2:49 PM CDT Impressions 03/08/2025 2:54 PM CDT IMPRESSION: 1. No chest metastasis. 2. Partially calcified, masslike lesion in the liver likely representing the known liver neoplasm or treatment change. Refer to dedicated abdominal imaging. > Interpreting Provider: Jaylon Chahal MD on 03/08/2025 2:54 PM Narrative 03/08/2025 2:54 PM CDT PROCEDURE: CT CHEST WO CONTRAST DATE/TIME OF EXAM: 03/08/2025 11:39 AM CLINICAL INFORMATION: None relevant/not provided if blank. Indication: C22.1: Cholangiocarcinoma (HCC) Additional History: COMPARISON: 08/28/2023, CT CHEST W LIVER 3 PHASE W PELVIS TECHNIQUE: CT of the chest was performed without intravenous contrast utilizing standard protocol. CT dose reduction technique was used, including Automated Exposure Control. FINDINGS: Central tracheobronchial tree: Clear. Lungs: Clear. Pleura: No significant pleural effusion. No pneumothorax. Heart: Heart is not enlarged. No significant pericardial effusion. There is a right chest wall port with the catheter tip in the superior vena cava. There are coronary artery calcifications. There are calcifications of the mitral annulus. Thoracic aorta is normal in caliber with calcifications. Leigh/mediastinum: No abnormally enlarged hilar or mediastinal lymph nodes by noncontrast technique. Bones: No significant osseous changes. Upper abdomen: Partially evaluated, partially calcified masslike lesion in the liver. Procedure Note Jaylon Chahal MD - 03/08/2025 PROCEDURE: CT CHEST WO CONTRAST DATE/TIME OF EXAM: 03/08/2025 11:39 AM CLINICAL INFORMATION: None relevant/not provided if blank. Indication: C22.1: Cholangiocarcinoma (HCC) Additional History: COMPARISON: 08/28/2023, CT CHEST W LIVER 3 PHASE W PELVIS TECHNIQUE: CT of the chest was performed without intravenous contrast utilizing standard protocol. CT dose reduction technique was used, including Automated ExposureControl. FINDINGS: Central tracheobronchial tree: Clear. Lungs: Clear. Pleura: No significant pleural effusion. No pneumothorax. Heart: Heart is not enlarged. No significant pericardial effusion. Thereis a right chest wall port with the catheter tip in the superior vena cava. There are coronary artery calcifications. There are calcifications ofthe mitral annulus. Thoracic aorta is normal in caliber with calcifications. Leigh/mediastinum: No abnormally enlarged hilar or mediastinal lymphnodes by noncontrast technique. Bones: No significant osseous changes. Upper abdomen: Partially evaluated, partially calcified masslike lesionin the liver. IMPRESSION: 1. No chest metastasis. 2. Partially calcified, masslike lesion in the liver likely representing the known liver neoplasm or treatment change. Refer to dedicatedabdominal imaging. > Interpreting Provider: Jaylon Chahal MD on 03/08/2025 2:54 PM Erica Jang MD CT ORDERABLES Final Result * TSH REFLEX FREE T4 (02/09/2025 10:08 AM CDT) Pathologist [facility] TSH 1.796 0.350 - 4.940 uIU/mL 02/09/2025 11:34 AM CDT [facility] Blood BLOOD SPECIMEN / Unknown Lab Venipuncture / Unknown 02/09/2025 10:08 AM CDT 02/09/2025 10:43 AM CDT Trinh Calloway MD LAB - CHEMISTRY ORDERABLES Zandra l Result [facility] [address] [place] [address], [facility] [phone] * ALPHA FETOPROTEIN BLOOD TUMOR MARKER (02/09/2025 10:08 AM CDT) Pathologist [facility] Alpha-Fetoprote in Tumor Marker <2.0 <=8.3 ng/mL 02/09/2025 11:25 AM CDT [facility] Comment: AFP values will vary depending on testing procedure used. Results are not comparable across different methods. AFP values obtained by [facility] using an Pope Alinity Immunoassay. Blood BLOOD SPECIMEN / Unknown Lab Venipuncture / Unknown 02/09/2025 10:08 AM CDT 02/09/2025 10:42 AM CDT us Trinh Calloway MD LAB - CHEMISTRY ORDERABLES Zandra martinez Result [address] [address], [facility] [phone] * (ABNORMAL) CBC WITH DIFFERENTIAL (02/09/2025 10:08 AM CDT) WBC 7.7 4.0 - 10.7 x10E9/L 02/09/2025 10:50 AM [facility] RBC Count 4.13 3.90 - 5.20 x10E12/L 02/09/2025 10:50 AM [facility] Hemoglobin 11.5(L) 11.9 - 15.8 g/dL 02/09/2025 10:50 AM [facility] Hematocrit 36.6 34.8 - 46.1 % 02/09/2025 10:50 AM [facility] MCV 88.6 80.0 - 98.0 fL 02/09/2025 10:50 AM [facility] MCH 27.8 26.7 - 33.6 pg 02/09/2025 10:50 AM [facility] MCHC 31.4(L) 31.7 - 36.3 g/dL 02/09/2025 10:50 AM [facility] RDW-CV 15.0(H) 11.3 - 14.8 % 02/09/2025 10:50 AM [facility] Platelet Count 321 150 - 420 x10E9/L 02/09/2025 10:50 AM [facility] MPV 10.4 7.8 - 11.4 fL 02/09/2025 10:50 AM [facility] Neutrophil % 73.5 41.0 - 74.0 % 02/09/2025 10:50 AM [facility] Lymphocyte % 11.2(L) 17.0 - 47.0 % 02/09/2025 10:50 AM [facility] Monocyte % 10.3 3.0 - 11.0 % 02/09/2025 10:50 AM [facility] Eosinophil % 3.7 0.0 - 7.0 % 02/09/2025 10:50 AM [facility] Basophil % 0.8 0.0 - 1.6 % 02/09/2025 10:50 AM [facility] Immature Granulocytes % 0.5 0.0 - 1.0 % 02/09/2025 10:50 AM [facility] Neutrophil Absolute 5.62 1.60 - 7.50 x10E9/L 02/09/2025 10:50 AM [facility] Lymphocyte Absolute 0.86(L) 1.00 - 4.40 x10E9/L 02/09/2025 10:50 AM [facility] Monocyte Absolute 0.79 0.15 - 1.00 x10E9/L 02/09/2025 10:50 AM [facility] Eosinophil Absolute 0.28 0.00 - 0.60 x10E9/L 02/09/2025 10:50 AM [facility] Basophil Absolute 0.06 0.00 - 0.13 x10E9/L 02/09/2025 10:50 AM [facility] Blood BLOOD SPECIMEN / Unknown Lab Venipuncture / Unknown 02/09/2025 10:08 AM CDT 02/09/2025 10:43 AM T us Trinh Calloway MD LAB - HEMATOLOGY ORDERABLES Fin al Result [facility] [address] [place] [address], [facility] [phone] * (ABNORMAL) COMPREHENSIVE METABOLIC PANEL (02/09/2025 10:08 AM CDT) BUN 14 7 - 26 mg/dL 02/09/2025 11:34 AM [facility] Creatinine 1.29(H) 0.56 - 0.96 mg/dL 02/09/2025 11:34 AM [facility] Sodium 139 136 - 145 mmol/L 02/09/2025 11:34 AM [facility] Potassium 4.9(H) 3.5 - 4.5 mmol/L 02/09/2025 11:34 AM [facility] Chloride 109(H) 98 - 107 mmol/L 02/09/2025 11:34 AM [facility] CO2 19(L) 22 - 29 mmol/L 02/09/2025 11:34 AM [facility] Glucose 113(H) 70 - 99 mg/dL 02/09/2025 11:34 AM [facility] Calcium 9.3 8.4 - 10.2 mg/dL 02/09/2025 11:34 AM [facility] Protein Total 7.0 6.0 - 8.3 g/dL 02/09/2025 11:34 AM [facility] Albumin 3.2(L) 3.4 - 5.0 g/dL 02/09/2025 11:34 AM [facility] Bilirubin Total 0.4 0.2 - 1.2 mg/dL 02/09/2025 11:34 AM [facility] Alkaline Phosphatase 128 40 - 150 U/L 02/09/2025 11:34 AM [facility] ALT 14 5 - 55 U/L 02/09/2025 11:34 AM [facility] AST 21 5 - 34 U/L 02/09/2025 11:34 AM [facility] Anion Gap 11 6 - 16 02/09/2025 11:34 AM [facility] BUN/Creatinine Ratio 11 7 - 23 02/09/2025 11:34 AM [facility] Osmolality Calculated 289 275 - 295 mOsm/kg 02/09/2025 11:34 AM [facility] Albumin/Globulin Ratio 0.8(L) 1.1 - 2.3 02/09/2025 11:34 AM [facility] eGFR by CKD-EPI 41(L) >=90 mL/min/1.7 3 m2 02/09/2025 11:34 AM CDT [facility] Blood BLOOD SPECIMEN / Unknown Lab Venipuncture / Unknown 02/09/2025 10:08 AM CDT 02/09/2025 10:43 AM CDT Trinh Calloway MD LAB - CHEMISTRY ORDERABLES Zandra martinez Result [facility] [address] [place] [address], [facility] [phone] from Last 3 Months Insurance [employer] MEDICARE ADV HMO & PPO Advance Directives Documents on File Type Date Recorded Patient Certified Rehabilitation Counselor Expl anation Adv Directive/Living Will/POA 10/29/2022 1:30 PM [place] DURABLE POA FOR HLTHCARE Care Teams Manager Of Warehouse Relationship Specialty Start Date End Date Laila Amador MD [address] [place] [address] PCP - General Family Medicine 09/25/22 Trinh Calloway MD [address] [facility] [address] [place] [address] Hematology and Oncology 09/26/22
--- OUTSIDE RECORDS SUMMARY | 2025-04-26 15:08 | XMS_ITS | Encounter Summary ---
Author Organization [facility] Address [address] [facility] [place] [address] Care Team Providers Care Cinder Man Name Role Phone Laila Amador MD Primary Care Provider [phone] Trinh Calloway MD Unavailable [phone] Encounter Details Date Type Department Care Team (Late st Contact Info) Description 04/22/2025 Orders Only [facility] - Hematology/Oncology [address] [place] [address] Trinh Calloway MD [address] [facility] [address] [place] [address] Cholangiocarcinoma (HCC) Social History Tobacco Use Types Packs/Day Years Used Date Smoking Tobacco: Former Cigarettes Q uit: 1982 Passive Smoke Exposure: Never Smokeless Tobacco: Never Alcohol Use Standard Drinks/Week Comments Not Currently [...] AM CDT Sexual Orientation Not on file documented as of this encounter Functional Status * Is person deaf or have serious hearing difficulty? Answer Date of Assessment Author No 09/04/2023 1:48 PM Jean Pierre Black RN * Is person blind or have serious difficulty seeing? Answer Date of Assessment Author No 09/04/2023 1:48 PM Jean Pierre Black RN * Does person have serious difficulty walking/climbing stairs? Answer Date of Assessment Author No 09/04/2023 1:48 PM Jean Pierre Black RN * Does person have difficulty dressing/bathing? Answer Date of Assessment Author No 09/04/2023 1:48 PM Jean Pierre Black RN * Does person have difficulty doing errands alone? Answer Date of Assessment Author No 09/04/2023 1:48 PM Jean Pierre Black RN documented as of this encounter Mental Status * Does person have difficulty concentrating/remembering/making decisions? Answer Entry Date Author No 09/04/2023 1:48 PM Jean Pierre Black RN documented in this encounter Plan of Treatment Upcoming Encounters Date Type Department Care Team (Late st Contact Info) Description 06/14/2025 11:00 AM CDT Office Visit [facility] - Hematology/Oncology [address] [place] [phone] Trinh Calloway MD [address] [facility] [address] [place] [address] 07/01/2025 2:00 PM CDT Appointment [facility] [address] [place] [phone] Erica Jang MD [address] [place] [address] 07/01/2025 2:30 PM CDT Appointment [facility] MRI [address] [place] [phone] Erica Jang MD [address] [place] [address] [phone] 07/07/2025 10:30 AM CDT Appointment [facility] [address] [place] [address] [phone] Erica Jang MD [address] [place] [address] [phone] documented as of this encounter Visit Diagnoses Diagnosis Cholangiocarcinoma (HCC) documented in this encounter Care Teams Cinder Man Relationship Specialty Start Date End Date Laila Amador MD [address] [place] [address] PCP - General Family Medicine 09/25/22 Trinh Calloway MD [address] [facility] [address] [place] [address] Hematology and Oncology 09/26/22 documented as of this encounter
[2025-04-26 15:18] LABS: Alanine Aminotransferase 10 U/L (6-35); Albumin Level 3.4 g/dL (3.5-5.1); Alkaline Phosphatase 88 U/L (38-126); Anion Gap 10 mmol/L (4-12); Aspartate Amino Transferase 28 U/L (14-36); Bilirubin,Total 0.6 mg/dL (0.2-1.3); Blood Urea Nitrogen 24 mg/dL (7-17); Calcium 9.1 mg/dL (8.4-10.2); Carbon Dioxide 24 mmol/L (22-30); Chloride 99 mmol/L (98-107); Estimated Glomerular Filt Rate 24; Glucose 98 mg/dL (65-110); Potassium 4.6 mmol/L (3.4-5.0); Sodium 133 mmol/L (137-145); Total Protein 6.5 g/dL (6.3-8.2)
--- NOTE | 2025-04-26 16:30 | PC.NURSE ---
Dr. Osborn at bedside updating pt. All questions answered.
--- NOTE | 2025-04-26 16:43 | ED.GENADULT ---
HPI - General Adult General Chief complaint: Nausea/Vomiting/Diarrhea Stated complaint: weakness Time Seen by Provider: 04/26/25 14:22 Source: patient Mode of arrival: ambulatory Limitations: no limitations History of Present Illness HPI narrative: 84-year-old with a history of cholangiocarcinoma presents to the ER with the complaints of nausea, vomiting, diarrhea, weakness, poor appetite for last several weeks. Patient states that she has not had chemo since October of this year. Denies any fever or chills. She is scheduled to see oncologist in June of this year at [facility]. Onset (ago): week(s) Exacerbating factors: none Associated symptoms: denies other symptoms Related Data Home Medications ?Medication ?Instructions ?Recorded ?Confirmed ?Last Taken ?Type cetirizine 10 mg tablet 10 mg PO DAILY PRN 09/30/22 04/21/25 Unknown History hydroxyzine HCl 25 mg tablet 25 mg PO BID PRN 04/08/24 04/21/25 Unknown History tramadol 50 mg tablet 50 mg PO Q6H PRN 04/08/24 04/21/25 Unknown History Allergies Allergy/AdvReac Type Severity Reaction Status Date / Time No Known Allergies Allergy Verified 04/21/25 09:22 Review of Systems Review of Systems: All systems reviewed & are unremarkable except as noted in HPI and below Constitutional: Constitutional: Reports no additional constitutional complaints Eyes: Eyes: Reports no additional eye complaints PMFSH Past Medical History Medical History 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 Benign essential tremor Cholangiocarcinoma Hepatic adenocarcinoma Liver mass Bowel habit changes Family history of pancreatic cancer GERD (gastroesophageal reflux disease) Vitamin B12 deficiency Vitamin D deficiency Prediabetes CKD (chronic kidney disease) Weight loss Nausea Depression Carpal tunnel syndrome Elevated blood sugar Essential hypertension FH: glaucoma Mixed hyperlipidemia Obstructive sleep apnea syndrome Recurrent major depressive disorder, in remission Seasonal allergic rhinitis Surgical History Surgical History History of carpal tunnel surgery History of tubal ligation History of hand surgery Family History Family History Mother Family history of hypercholesterolemia Family history of Alzheimer's disease Grandparent Family history of glaucoma Father Family history of pancreatic cancer Social History Social History Smoking status: Former smoker Second hand tobacco smoke exposure: Yes Smoking end date: 09/22/81 Alcohol intake: current Substance use: never Substance use type: does not use Lack of Transportation: No Lack of Food: Never True Current Housing: I Have Housing Concerned About Future Housing: No Difficulty Paying Gas/Electric Bills: No Difficulty Paying for Meds: No Currently Unemployed: No Education: Master's Degree or Higher Difficulty w/ Childcare or Family Care: No Living arrangements: with family Occupation/Education: retired Gender identity (if verbalized by the patient): Female Sexual Orientation (if Verbalized by the Patient): Straight or Heterosexual Spiritual care concerns: No Agree to blood products: Yes Exam Narrative: GENERAL: Well-appearing, well-nourished, and in no acute distress. HEAD: Normocephalic, atraumatic. EYES: PERRLA and EOMI. ENT: Nares clear, Mucous membranes moist. NECK: Supple. CHEST: Clear to auscultation. No respiratory distress. HEART: Regular rate and rhythm. No murmur heard. Normal peripheral pulses. ABDOMEN: Soft, distended, normal active bowel sounds. EXTREMITIES: Normal range of motion. No edema. SKIN: Warm, dry, no rash. NEURO: No focal deficits. Alert and oriented x3. PSYCH: Normal mood and affect. Course Course Emergency Course: Informed patient about her lab work, CT findings. She is not quite sure what she wanted this time. Will consult Oncology at [facility] Discussed with Dr. Dawn Oncology at [facility] , no emergent intervention is required from Oncology stand point ,more symptomatic treatment at this time , pt wants to be admitted for nausea control and IV hydration . Discussed with Hospitalist will accept . Vital Signs Vital signs: Vital Signs Temperature 36.6 C 04/26/25 14:36 Pulse Rate 77 04/26/25 14:36 Respiratory Rate 16 04/26/25 14:36 Blood Pressure 179/93 H 04/26/25 14:36 Pulse Oximetry 100 04/26/25 14:36 Temperature 36.6 C 04/26/25 14:36 Pulse Rate 77 04/26/25 14:36 Respiratory Rate 16 04/26/25 14:36 Blood Pressure 179/93 H 04/26/25 14:36 Pulse Oximetry 100 04/26/25 14:36 Medical Decision Making Medical Records Medical records reviewed: Yes I reviewed the external patient's medical records. Vital Signs Vital Signs: Vital Signs Temperature 36.6 C 04/26/25 14:36 Pulse Rate 77 04/26/25 14:36 Respiratory Rate 16 04/26/25 14:36 Blood Pressure 179/93 H 04/26/25 14:36 Pulse Oximetry 100 04/26/25 14:36 Temperature 36.6 C 04/26/25 14:36 Pulse Rate 77 04/26/25 14:36 Respiratory Rate 16 04/26/25 14:36 Blood Pressure 179/93 H 04/26/25 14:36 Pulse Oximetry 100 04/26/25 14:36 Lab Data Lab results reviewed: Yes I reviewed the patient's lab results. 04/26/25 14:47 04/26/25 14:47 Labs: Lab Results 04/26/25 Range/Units 14:47 WBC 5.7 (4.5-10.0) K/mm3 RBC 3.84 L (4.2-5.4) M/mm3 Hgb 10.9 L (12.0-15.0) g/dL Hct 35.4 L (37.0-47.0) % MCV 92.2 (80-100) fl MCH 28.4 (26-34) pg MCHC 30.8 L (32-36) g/dl RDW 15.5 H (11.5-14.5) % Plt Count 334 (150-375) k/mm3 MPV 10.0 (7.4-10.4) fl Immature Gran % (Auto) 1.0 H (0-0.5) % Neut % (Auto) 81.6 H (45.5-73.1) % Lymph % (Auto) 6.8 L (18.3-44.2) % Mcleod % (Auto) 9.4 H (2.6-8.5) % Eos % (Auto) 0.7 (0-4.4) % Baso % (Auto) 0.5 (0.2-1.2) % Lymph # (Auto) 0.39 L (0.9-3.2) K/mm3 Mcleod # (Auto) 0.5 (0.1-0.6) K/mm3 Eos # (Auto) 0.0 (0-0.3) K/mm3 Baso # (Auto) 0.0 (0.0-0.1) K/mm3 Abs Immat Gran (auto) 0.06 H (0.00-0.031) K/mm3 Absolute Neuts (auto) 4.7 (1.3-6.7) K/mm3 Absolute Nucleated RBC 0.000 (0.0-0.012) K/mm3 Nucleated RBC % 0.0 (0.0-0.2) % Sodium 133 L (137-145) mmol/L Potassium 4.6 (3.4-5.0) mmol/L Chloride 99 (98-107) mmol/L Carbon Dioxide 24 (22-30) mmol/L Anion Gap 10 (4-12) mmol/L BUN 24 H (7-17) mg/dL Creatinine 1.97 H (0.7-1.0) mg/dL Estim Creat Clear Calc Not Reportable Estimated GFR 24 L (59 - ) Glucose 98 (65-110) mg/dL Lactic Acid 1.2 (0.7-2.0) mmol/L Calcium 9.1 (8.4-10.2) mg/dL Total Bilirubin 0.6 (0.2-1.3) mg/dL AST 28 (14-36) U/L ALT 10 (6-35) U/L Alkaline Phosphatase 88 (38-126) U/L Total Protein 6.5 (6.3-8.2) g/dL Albumin 3.4 L (3.5-5.1) g/dL Imaging Data Radiologist's impression: ITS Impressions Abdomen/Pelvis CT 04/26/25 16:24 IMPRESSION: 1. Complex 10.5 cm hepatic mass, consistent with malignancy, most likely primary hepatocellular or metastatic disease. 2: Large amount of ascites. 3: Small pleural effusions. Discharge Plan Discharge Clinical Impression: Cancer, hepatocellular Ascites Qualifiers: Ascites type: malignant Qualified Code(s): R18.0 - Malignant ascites Patient Disposition: Still a Patient Condition: Stable Patient Language: Portuguese Prescriptions: No Action cetirizine 10 mg tablet 10 mg PO DAILY PRN tramadol 50 mg tablet 50 mg PO Q6H PRN hydroxyzine HCl 25 mg tablet 25 mg PO BID PRN duloxetine 60 mg capsule,delayed release(DR/EC) 60 mg PO DAILY Qty: 1 0RF oxycodone 5 mg capsule 5 mg PO Q4H PRN (Reason: pain) Qty: 1 0RF fluticasone propionate 50 mcg/actuation spray,suspension 1 spray intranasal BID Qty: 16 0RF Rx Instructions: administer into each nostril ondansetron HCl 8 mg tablet 8 mg PO Q8H PRN (Reason: nausea and vomiting) Qty: 60 0RF prucalopride 2 mg tablet 2 mg PO DAILY Qty: 30 0RF pantoprazole 40 mg tablet,delayed release (DR/EC) 40 mg PO BID Qty: 60 2RF lorazepam 0.5 mg tablet 0.5 mg PO BID PRN (Reason: anxiety) Qty: 60 1RF triamcinolone acetonide 0.1 % cream 1 applic topical BID Qty: 80 0RF fluoxetine 20 mg capsule 60 mg PO DAILY Qty: 270 2RF ergocalciferol (vitamin D2) 1,250 mcg (50,000 unit) capsule 1,250 mcg PO WEEKLY Qty: 12 3RF losartan 50 mg tablet 50 mg PO DAILY Qty: 90 1RF clobetasol 0.05 % cream 1 applic topical BID Qty: 60 1RF Follow-up/Referrals: Laila Amador MD [Primary Care Provider] - Time of Disposition: 17:46
[2025-04-26 17:00] VITALS: BP 158/79; PULSE 75; RESP 20; O2SAT 97
[2025-04-26 17:45] LABS: Add Urine Microscopic? YES; Appearance Urine Clear (Clear); Glucose Urine UA Negative (Negative); Leukocyte Esterase Ur Negative LEU/UL (Negative); Need Manual Microscopic Reviewed; Nitrate Urine Negative (Negative); Specific Grav Ur 1.028 (1.001-1.035)
--- NOTE | 2025-04-26 17:58 | P.HP_ITS ---
H&P: HPI History of Present Illness Date/Time: 04/26/25 17:58 Chief Complaint: Nausea vomiting and diarrhea Narrative: 84-year-old female past medical history of cholangiocarcinoma, hepatic adenocarcinoma not currently on treatment, hypertension, PATRICIO, presents the hospital with nausea vomiting and diarrhea. Patient is on palliative care. Patient states that she has had nausea vomiting diarrhea for the last several weeks with poor appetite. She has a feeling extremely weak today's she came to the hospital for symptomatic treatment. She is a do not intubate, do not do CPR, and no ICU management. Patient denies fever chills. Lab work shows hemoglobin of 10.9, sodium of 133, BUN of 24, creatinine of 1.96 baseline being around 1.6, GFR 24, UA noninfective. CT abdomen shows complex 10.5 cm hepatic mass, consistent with malignancy, most likely primary hepatocellular or metastatic disease, large amount of ascites and small pleural effusions. Review of Systems Review of Systems: 12 systems were reviewed and are negativ e except for as per HPI. 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 Benign essential tremor Cholangiocarcinoma Hepatic adenocarcinoma Liver mass Bowel habit changes Family history of pancreatic cancer GERD (gastroesophageal reflux disease) Vitamin B12 deficiency Vitamin D deficiency Prediabetes CKD (chronic kidney disease) Weight loss Nausea Depression Carpal tunnel syndrome Elevated blood sugar Essential hypertension FH: glaucoma Mixed hyperlipidemia Obstructive sleep apnea syndrome Recurrent major depressive disorder, in remission Seasonal allergic rhinitis Surgical History Surgical History History of carpal tunnel surgery History of tubal ligation History of hand surgery Family History Family History Mother Family history of hypercholesterolemia Family history of Alzheimer's disease Grandparent Family history of glaucoma Father Family history of pancreatic cancer Social History Social History Smoking status: Former smoker Second hand tobacco smoke exposure: Yes Smoking end date: 09/22/81 Alcohol intake: current Drinks per week: 1 Substance use: unknown Substance use type: does not use Lack of Transportation: YES Lack of Food: Never True Current Housing: I Have Housing Concerned About Future Housing: No Difficulty Paying Gas/Electric Bills: No Difficulty Paying for Meds: No Currently Unemployed: No Education: Bachelor's Degree Difficulty w/ Childcare or Family Care: No Living arrangements: with family Occupation/Education: retired Gender identity (if verbalized by the patient): Female Sexual Orientation (if Verbalized by the Patient): Straight or Heterosexual Spiritual care concerns: No Agree to blood products: Yes Meds Home Medications and Allergies Home Medications ?Medication ?Instructions ?Recorded ?Confirmed ?Type duloxetine 60 mg capsule,delayed 60 mg PO DAILY #1 cap 09/26/23 04/26/25 Rx release tramadol 50 mg tablet 50 mg PO Q6H PRN pain 04/08/24 04/26/25 History fluoxetine 20 mg capsule 60 mg (3 x 20 mg) PO DAILY #270 01/12/25 04/26/25 Rx caps losartan 50 mg tablet 50 mg PO DAILY #90 tabs 03/02/25 04/26/25 Rx lorazepam 0.5 mg tablet 0.5 mg PO BID PRN anxiety #60 tabs 04/21/25 04/26/25 Rx ondansetron HCl 8 mg tablet 8 mg PO Q8H PRN nausea and 04/21/25 04/26/25 Rx vomiting #60 tabs pantoprazole 40 mg tablet,delayed 40 mg PO BID #60 tabs 04/21/25 04/26/25 Rx release ergocalciferol (vitamin D2) 1,250 1,250 mcg PO .COMPLEX 04/26/25 04/26/25 History mcg (50,000 unit) capsule prucalopride 2 mg tablet 2 mg PO DAILY PRN constipation 04/26/25 04/26/25 History Allergies Allergy/AdvReac Type Severity Reaction Status Date / Time No Known Allergies Allergy Verified 04/26/25 19:04 Vital Signs Vital Signs - 24 hr 04/26/25 14:36 04/26/25 17:00 Temperature 97.9 F Pulse Rate 77 75 Respiratory Rate 16 20 Blood Pressure 179/93 H 158/79 H Pulse Oximetry 100 97 Exam Narrative: General: well appearing, appears stated age. HEENT: normocephalic, atraumatic. Mucous membranes moist. EOMI, PERRLA, bilateral sclera anicteric, no conjunctival injection. Neck supple without JVD, lymphadenopathy, or bruit. Respiratory: clear to ascultation bilaterally. No rales/rhonic/wheezes. Cardiovascular: Regular rate and rhythm, normal S1-S2 upon ascultation. No murmurs, rubs, or clicks. PMI is nondisplaced, capillary refill less than 3 second. Abdomen: Distended, no pulsatile masses, No rebound, no guarding. No CVA tenderness, no hepatosplenomegaly. Bowel sounds present to all four quadrants. No high pitch or tinkling sounds, resonant to percussion. Extremities: No cyanosis, clubbing, or edema present. Pulses are palpable 2/2. Active ROM to all four extremities. Neuro: Alert and orientated x 4. PERRLA. Cranial nerves 2-12 intact without focal deficit. Skin: Warm, dry, and intact, without rash, erythema, or lesion. Psych: pleasant, cooperative, normal speech, normal affect, no hallucinations, no dysarthia H&P: Results Labs Labs: Short CBC 04/26/25 Range/Units 14:47 WBC 5.7 (4.5-10.0) K/mm3 Hgb 10.9 L (12.0-15.0) g/dL Hct 35.4 L (37.0-47.0) % Plt Count 334 (150-375) k/mm3 BMP 04/26/25 14:47 Sodium 133 L Potassium 4.6 Chloride 99 Carbon Dioxide 24 BUN 24 H Creatinine 1.97 H Glucose 98 Calcium 9.1 Liver Function 04/26/25 Range/Units 14:47 Total Bilirubin 0.6 (0.2-1.3) mg/dL AST 28 (14-36) U/L ALT 10 (6-35) U/L Alkaline Phosphatase 88 (38-126) U/L Albumin 3.4 L (3.5-5.1) g/dL Urine 04/26/25 Range/Units 17:16 Urine Color Yellow (Yellow) Urine Appearance Clear (Clear) Urine pH 5.0 (5.0-9.0) Ur Specific [place] 1.028 (1.001-1.035) Urine Protein Trace (Negative) mg/dL Urine Glucose (UA) Negative (Negative) mg/dL Assessment and Plan Assessment and plan (1) Nausea vomiting and diarrhea: Code(s): R11.2 - Nausea with vomiting, unspecified; R19.7 - Diarrhea, unspecified Status: Acute Assessment and Plan: C diff pending IVF for hydration Zofran as needed (2) Ascites: Qualifiers: Ascites type: malignant Qualified Code(s): R18.0 - Malignant ascites Code(s): R18.8 - Other ascites Status: Acute Assessment and Plan: NPO midnight Plan for paracentesis tomorrow (3) Essential hypertension: Code(s): I10 - Essential (primary) hypertension Status: Acute Assessment and Plan: Continue losartan L (4) Cholangiocarcinoma: Code(s): C22.1 - Intrahepatic bile duct carcinoma Status: Acute Assessment and Plan: Palliative care (5) Hepatic adenocarcinoma: Code(s): C22.9 - Malignant neoplasm of liver, not specified as primary or secondary Status: Acute Assessment and Plan: Palliative care L (6) Depression: Code(s): F32.9 - Major depressive disorder, single episode, unspecified Status: Acute Assessment and Plan: Continue Prozac, Ativan Quality VTE Prophylaxis VTE prophylaxis: mechanical ordered If No VTE Prophylaxis Answer both mechanical and pharmacologic: Reason no pharmacologic proph: medical contraindication Hospitalist MIPS Advance Care Plan I have confirmed that the patient's Advanced Care Plan is present, code status is documented, or surrogate decision maker is listed in patient medical record.: Yes Medication Reconciliation I have utilized all available resources to obtain, update and review the patients current medications (includes all prescriptions, OTC, herbals, cannabis, and nutritional supplements).: Yes
--- NOTE | 2025-04-26 17:59 | PC.NURSE ---
Clear liquid diet tray to be delivered to bedside for pt.
[2025-04-26 18:02] VITALS: BP 142/92; PULSE 76; RESP 16; O2SAT 100
[2025-04-26 18:13] LABS: INR 1.1; Prothrombin Time 14.0 Seconds (11.1-14.7)
[2025-04-26] MEDS: SODIUM CHLORIDE 0.9% IV 1,000 ML 125 ML IV CONT (18:17)
[2025-04-26] MEDS: MORPHINE SULFATE (*CRX) 2 MG/ML INJ IV PUSH (18:18)
[2025-04-26 19:03] VITALS: BMI 39.3
--- NOTE | 2025-04-26 19:19 | ADMGEN ---
This patient, Evie Bates, was admitted to 3 [facility] Surg Room 314-01 @ 1850 Patient/family oriented to hospital policies and general routines including ID bracelet, bed and alarms, visiting hours, pain management, procedures, bathroom and other care routines, personal items, smoking policy, room service/diet, and visiting hours. Information on how to activate the Rapid Response Team has been discussed. Patient/Family are encouraged to report perceived risks to care and to ask questions if they do not understand what they are told or what they should do.
[2025-04-26 19:30] VITALS: BP 157/79; PULSE 74; RESP 16; TEMP 36.4; O2SAT 100
[2025-04-26 21:05] VITALS: BP 162/76; PULSE 74; RESP 14; TEMP 36.4; O2SAT 100
[2025-04-26] MEDS: PANTOPRAZOLE 40 MG TABLET PO (21:26)
[2025-04-26] MEDS: LORazepam (*CRX) 0.5 MG TABLET PO (21:35)
[2025-04-27] MEDS: traMADol HCL (*CRX) 50 MG TABLET PO ×2 (01:20→18:54)
[2025-04-27] MEDS: SODIUM CHLORIDE 0.9% IV 1,000 ML 125 ML IV CONT (02:46)
[2025-04-27 05:23] VITALS: BP 149/78; PULSE 73; RESP 14; TEMP 36.6; O2SAT 100
[2025-04-27 05:57] LABS: Hematocrit 33.3 % (37.0-47.0); Hemoglobin 10.2 g/dL (12.0-15.0); Immature Granulocyte Percent A 0.8 % (0-0.5); Lymphocytes Absolute Auto 0.38 K/mm3 (0.9-3.2); Mean Corpuscular HGB Conc 30.6 g/dl (32-36); Mean Corpuscular Hemoglobin 28.4 pg (26-34); Mean Corpuscular Volume 92.8 fl (80-100); Nucleated Red Blood Cells Absolute Auto 0.000 K/mm3 (0.0-0.012); Nucleated Red Blood Cells Perc 0.0 % (0.0-0.2); Platelet Count Result 284 k/mm3 (150-375); Red Blood Count 3.59 M/mm3 (4.2-5.4); White Blood Count 4.8 K/mm3 (4.5-10.0)
[2025-04-27 06:35] LABS: Anion Gap 5 mmol/L (4-12); Blood Urea Nitrogen 19 mg/dL (7-17); Calcium 8.5 mg/dL (8.4-10.2); Carbon Dioxide 22 mmol/L (22-30); Chloride 101 mmol/L (98-107); Estimated Glomerular Filt Rate 30; Glucose 90 mg/dL (65-110); Potassium 4.3 mmol/L (3.4-5.0); Sodium 128 mmol/L (137-145)
--- NOTE | 2025-04-27 09:10 | P.PNIM_ITS ---
Progress Note: A&P Assessment and Plan (1) Ascites: Qualifiers: Ascites type: malignant Qualified Code(s): R18.0 - Malignant ascites Code(s): R18.8 - Other ascites Status: Acute Assessment and Plan: Abdomen/pelvis CT: Complex 10.5 cm hepatic mass, consistent with malignancy, most likely primary hepatocellular or metastatic disease. Large amount of ascites. Small pleural effusions. Likely secondary to patients known hepatic adenocarcinoma. Scheduled to see oncologist in June. 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 Large amount of ascites. Small pleural effusions. Per ED provider they discussed with patients oncologist Dr. Dawn at [facility] and no emergent intervention is required from Oncology stand point, more symptomatic treatment at this time See ascites plan above (4) Hepatic adenocarcinoma: Code(s): C22.9 - Malignant neoplasm of liver, not specified as primary or secondary Status: Acute Assessment and Plan: Abdomen/pelvis CT: Complex 10.5 cm hepatic mass, consistent with malignancy, most likely primary hepatocellular or metastatic disease. Large amount of ascites. Small pleural effusions. (5) Depression: Code(s): F32.9 - Major depressive disorder, single episode, unspecified Status: Acute Assessment and Plan: Continue Prozac and Ativan Time Spent With Patient Time with patient: 25 - 35 minutes Subjective Date/time seen: 04/27/25 09:10 Interval history: 84-year-old female past medical history of cholangiocarcinoma, hepatic adenocarcinoma not currently on treatment, hypertension, PATRICIO, presents the [facility] with nausea vomiting and diarrhea. Patient is on palliative care. Patient states that she has had nausea vomiting diarrhea for the last several weeks with poor appetite. Patient is pleasant lying comfortably in bed. She endorsing slight abdominal pain in association to the ascites. She has no other complaints denying chest pain, palpitations, nausea/vomiting. Plan for a paracentesis today. Patient states that she required a paracentesis for prior ascites approximately 1 year ago. Review of Systems Review of Systems: All systems reviewed & are unremarkable except as noted in HPI and below Exam Narrative: AF HR 75 RR 18 SPO2 97 BP 153/76 General: female in no acute respiratory distress who is nontoxic appearing, lying semi recumbent in bed. HEENT: Normocephalic. Atraumatic. Extraocular movement intact. Sclera clear and anicteric. No facial asymmetry. Chest: Lungs are clear to auscultation bilaterally. No wheezes or crackles. CV: Heart was regular rate and rhythm. S1-S2. No murmurs, gallops, or rubs. Abd: Abdomen was soft. Distended. Tender to palpation. Positive bowel sounds. Ext: No clubbing, cyanosis, or edema. DP pulses bilaterally. Neuro: Patient is alert and oriented x4. Speech is clear. Objective Data Vital Signs Vital Signs: Vital Signs - 24 hr 04/26/25 14:36 04/26/25 17:00 04/26/25 18:02 Temperature 97.9 F Pulse Rate 77 75 76 Respiratory Rate 16 20 16 Blood Pressure 179/93 H 158/79 H 142/92 H Pulse Oximetry 100 97 100 Oxygen Delivery 04/26/25 19:30 04/26/25 21:05 04/26/25 21:26 Temperature 97.5 F L 97.6 F Pulse Rate 74 74 Respiratory Rate 16 14 Blood Pressure 157/79 H 162/76 H Pulse Oximetry 100 100 Oxygen Delivery Room Air 04/27/25 05:23 Temperature 97.8 F Pulse Rate 73 Respiratory Rate 14 Blood Pressure 149/78 H Pulse Oximetry 100 Oxygen Delivery Intake/Output Intake/Output: Intake & Output 04/24/25 04/25/25 04/26/25 04/27/25 23:59 23:59 23:59 23:59 Intake Total 1000 1200 Output Total 250 Balance 1000 950 Meds/Results Medications: Active Medications Generic Name Dose Route Start Last Admin Trade Name Freq PRN Reason Stop Dose Admin Acetaminophen 650 mg 04/26/25 17:48 Acetaminophen 325 Mg Tablet PO Q4H PRN Mild Pain (1-3) or Fever Fluoxetine HCl 60 mg 04/27/25 09:00 Fluoxetine Hcl 20 Mg Capsule PO DAILY VON Sodium Chloride 1,000 mls @ 125 mls/hr 04/26/25 17:50 04/27/25 02:46 Normal Saline Iv IV CONT 125 mls/hr .Q8H VON Administration Lorazepam 0.5 mg 04/26/25 19:53 04/26/25 21:35 Lorazepam (*Crx) 0.5 Mg Tablet PO 0.5 mg BID PRN Administration anxiety Losartan Potassium 50 mg 04/27/25 09:00 Losartan Potassium 50 Mg Tablet PO DAILY VON Morphine Sulfate 2 mg 04/26/25 17:48 04/26/25 18:18 Morphine Sulfate (*Crx) 2 Mg/Ml Inj IV PUSH 2 mg Q2H PRN Administration Pain Rated 7-10 Ondansetron HCl 4 mg 04/26/25 17:48 04/26/25 18:18 Ondansetron Inj 4 Mg/2 Ml Vial IV PUSH 4 mg Q4H PRN Administration Nausea Pantoprazole Sodium 40 mg 04/26/25 20:20 04/26/25 21:26 Pantoprazole 40 Mg Tablet PO 40 mg BID VON Administration Tramadol HCl 50 mg 04/26/25 19:53 04/27/25 01:20 Tramadol Hcl (*Crx) 50 Mg Tablet PO 50 mg Q6H PRN Administration PAIN RATED 4-6 Radiology Results: ITS Impressions Abdomen/Pelvis CT 04/26/25 16:24 IMPRESSION: 1. Complex 10.5 cm hepatic mass, consistent with malignancy, most likely primary hepatocellular or metastatic disease. 2: Large amount of ascites. 3: Small pleural effusions. Labs Labs: Laboratory Results - last 24 hr 04/26/25 04/26/25 04/27/25 14:47 17:16 05:31 WBC 5.7 4.8 RBC 3.84 L 3.59 L Hgb 10.9 L 10.2 L Hct 35.4 L 33.3 L MCV 92.2 92.8 MCH 28.4 28.4 MCHC 30.8 L 30.6 L RDW 15.5 H 15.7 H Plt Count 334 284 MPV 10.0 10.5 H Immature Gran % (Auto) 1.0 H 0.8 H Neut % (Auto) 81.6 H 77.6 H Lymph % (Auto) 6.8 L 7.9 L [place] % (Auto) 9.4 H 11.2 H Eos % (Auto) 0.7 1.9 Baso % (Auto) 0.5 0.6 Lymph # (Auto) 0.39 L 0.38 L [place] # (Auto) 0.5 0.5 Eos # (Auto) 0.0 0.1 Baso # (Auto) 0.0 0.0 Abs Immat Gran (auto) 0.06 H 0.04 H Absolute Neuts (auto) 4.7 3.8 Absolute Nucleated RBC 0.000 0.000 Nucleated RBC % 0.0 0.0 PT 14.0 INR 1.1 Sodium 133 L 128 L Potassium 4.6 4.3 Chloride 99 101 Carbon Dioxide 24 22 Anion Gap 10 5 BUN 24 H 19 H Creatinine 1.97 H 1.65 H Estim Creat Clear Calc Not Reportable Not Reportable Estimated GFR 24 L 30 L Glucose 98 90 Lactic Acid 1.2 Calcium 9.1 8.5 Total Bilirubin 0.6 AST 28 ALT 10 Alkaline Phosphatase 88 Total Protein 6.5 Albumin 3.4 L Urine Color Yellow Urine Appearance Clear Urine pH 5.0 Ur Specific [place] 1.028 Urine Protein Trace Urine Glucose (UA) Negative Urine Ketones 1+ H Ur Blood (Man) 1+ H Urine Nitrate Negative Urine Bilirubin Negative Urine Urobilinogen 1.0 Add Ur Microanalysis Reviewed Leukocyte Esterase Rfl Negative Urine RBC 11-20 H Urine WBC 0-5 Ur Squamous Epith Cells None seen Urine Bacteria None seen Urine Casts 6-10 Quality VTE Prophylaxis VTE prophylaxis: mechanical ordered
[2025-04-27] MEDS: PANTOPRAZOLE 40 MG TABLET PO ×2 (09:22→17:22)
[2025-04-27] MEDS: LOSARTAN POTASSIUM 50 MG TABLET PO (09:22)
[2025-04-27] MEDS: LORazepam (*CRX) 0.5 MG TABLET PO ×3 (10:58→21:44)
--- NOTE | 2025-04-27 13:45 | CY_PTH ---
PATIENT: Evie Bates LOC: [id number] U#:[id number] AGE/SX: 84/F ROOM: 314 RE04/27/[address]: Sanjana Pittman PA-C : 1940 BED: 01 DIS: 04/28/2025 SPEC #: [id number] RECD: 04/27/25 14:30 STATUS: ROCHELLE TELLO #: [id number] ALBARO: 04/27/25 13:[address]: Sanjana Pittman DEPT: [facility] Cytology RECD BY: Paula Brandon ENTERED: 04/27/25 14:30 SP TYPE: Cytology OTHR DR: Laila Amador, MD Al Orlando MD Tissues: Peritoneal Fluid Procedures: Hematoxylin and Eosin Stain Cell Block Cytopathology Smear Cytopathology Cytospin
[2025-04-27 14:00] VITALS: BP 153/76; PULSE 75; RESP 18; TEMP 35.7; O2SAT 97
[2025-04-27 14:45] LABS: Appearance Peritoneal Fluid Clear (Clear); Color Peritoneal Fluid Yellow (Colorless); Nucleated Cells Peritoneal Flu 172 /uL (0-500); Source Peritoneal Fluid Peritoneal Fluid
[2025-04-27 14:46] LABS: Eosinophils Peritoneal Fluid 0 %; Lymphocytes Peritoneal Fluid 46 %; Macrophages Peritoneal Fluid 13 %; Mesothelial Cells Peritoneal Fluid 3 %; Monocytes Peritoneal Fluid 34 %; Neutrophils Peritoneal Fluid 4 % (0-25)
[2025-04-27 21:33] VITALS: BP 153/71; PULSE 74; RESP 14; TEMP 36.3; O2SAT 100
[2025-04-28 06:00] VITALS: BP 150/66; PULSE 75; RESP 16; TEMP 36.2; O2SAT 96
[2025-04-28] MEDS: traMADol HCL (*CRX) 50 MG TABLET PO ×2 (06:58→12:29)
[2025-04-28 08:15] LABS: Hematocrit 36.5 % (37.0-47.0); Hemoglobin 11.0 g/dL (12.0-15.0); Mean Corpuscular HGB Conc 30.1 g/dl (32-36); Mean Corpuscular Hemoglobin 27.9 pg (26-34); Mean Corpuscular Volume 92.6 fl (80-100); Platelet Count Result 283 k/mm3 (150-375); Red Blood Count 3.94 M/mm3 (4.2-5.4); White Blood Count 6.6 K/mm3 (4.5-10.0)
[2025-04-28] MEDS: LOSARTAN POTASSIUM 50 MG TABLET PO (08:17)
[2025-04-28] MEDS: PANTOPRAZOLE 40 MG TABLET PO (08:17)
[2025-04-28 08:56] LABS: Alanine Aminotransferase 8 U/L (6-35); Albumin Level 2.8 g/dL (3.5-5.1); Alkaline Phosphatase 79 U/L (38-126); Anion Gap 6 mmol/L (4-12); Aspartate Amino Transferase 23 U/L (14-36); Bilirubin,Total 0.4 mg/dL (0.2-1.3); Blood Urea Nitrogen 15 mg/dL (7-17); Calcium 8.5 mg/dL (8.4-10.2); Carbon Dioxide 22 mmol/L (22-30); Chloride 103 mmol/L (98-107); Estimated Glomerular Filt Rate 35; Glucose 121 mg/dL (65-110); Potassium 4.2 mmol/L (3.4-5.0); Sodium 131 mmol/L (137-145); Total Protein 5.6 g/dL (6.3-8.2)
--- NOTE | 2025-04-28 12:25 | P.DS_ITS ---
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 Patient is on palliative care for the known hepatic adenocarcinoma. Not meeting sepsis criteria on admission. Abdomen/pelvis CT showed complex 10.5 cm hepatic mass, consistent with malignancy, most likely primary hepatocellular or metastatic disease, large amount of ascites, and small pleural effusions. Patient underwent a paracentesis with 4700 ml of straw colored fluid removed on 04/27. Gram stain negative for wbc and organisms. Per ED provider they discussed with patients oncologist Dr. Lexx anne at [facility] and no emergent intervention is required from Oncology stand point. Following the paracentesis patients pain significantly improved. She tolerated a normal diet and denied any nausea/vomiting or abdominal pain on discharge. Prior to discharge patient was able to ambulate throughout the halls with nursing staff. She states that she feels at her baseline ambulation and is comfortable with returning to the assisted living. Per patient and daughter, Saima she plans to start [facility] upon arrival back to the assisted living. Patient has no complaints at time of discharge denying chest pain, palpitations, shortness of breath, nausea/vomiting and abdominal pain. Patient discharged back to assisted living in a stable condition. She is to follow up with her PCP in 1 week and oncology as scheduled. Status at Discharge Functional status at discharge: uses cane/walker Time Spent with Patient Time attestation: Total time spent providing and/or coordinating discharge services: Time spent: Greater than 30 minutes Exam Narrative: AF HR 75 RR 18 SPO2 97 BP 153/76 General: female in no acute respiratory distress who is nontoxic appearing, lying semi recumbent in bed. HEENT: Normocephalic. Atraumatic. Extraocular movement intact. Sclera clear and anicteric. No facial asymmetry. Chest: Lungs are clear to auscultation bilaterally. No wheezes or crackles. CV: Heart was regular rate and rhythm. S1-S2. No murmurs, gallops, or rubs. Abd: Abdomen was soft. Distended. Tender to palpation. Positive bowel sounds. Ext: No clubbing, cyanosis, or edema. DP pulses bilaterally. Neuro: Patient is alert and oriented x4. Speech is clear. DS: Data Data Completed and Pending Completed studies during hospitalization: paracentesis us abdomen/pelvis ct Pending studies at discharge: Pending at discharge 04/27/25 13:45 Cytology [PTH] Routine Labs on day of discharge: Labs from last 24 hours 04/28/25 04/27/25 08:10 13:20 WBC 6.6 RBC 3.94 L Hgb 11.0 L Hct 36.5 L MCV 92.6 MCH 27.9 MCHC 30.1 L RDW 15.5 H Plt Count 283 MPV 9.8 Sodium 131 L Potassium 4.2 Chloride 103 Carbon Dioxide 22 Anion Gap 6 BUN 15 Creatinine 1.43 H Estim Creat Clear Calc Not Reportable Estimated GFR 35 L Glucose 121 H Calcium 8.5 Total Bilirubin 0.4 AST 23 ALT 8 Alkaline Phosphatase 79 Total Protein 5.6 L Albumin 2.8 L Fluid Glucose Pending Fluid Total Protein Pending Fluid Albumin Pending Fluid LDH Pending Fluid Amylase Pending Peritoneal Source Peritoneal fluid Peritoneal Color Yellow Peritoneal Appearance Clear Peritoneal RBC < 2000 [place] Nuc Cells 172 [place] Neutrophils 4 [place] Lymphocytes 46 Peritoneal Monocytes 34 Peritoneal Eosinophils 0 [place] Mesothelial 3 [place] Macrophages 13 Discharge Plan Discharge Attending physician on discharge: Ramone Cao Consulting providers: Sanjana Lemon Discharging Clinician: Sanjana Lemon Anticipated Discharge Date/Time: 04/28/25 12:16 Patient Disposition: NH Skilled Nursing/Asst Living Activity: as tolerated Diet: as tolerated Discharge Instructions: Discharge disposition: Patient admitted to the hospital for ascites likely secondary to patients known hepatic adenocarcinoma. Underwent a paracentesis which removed 4.7 L on 04/27 Continue palliative care for hepatic adenocarcinoma as planned Per patient and family plan to start [facility] upon arrival back to assisted living Medication and plan of care to be taken over by [facility] at that time Monitor blood pressures Take caution while standing, rising, or moving Change positions slowly taking a break between each position change If you standing feel dizzy sit back down and take a break Encouraged to continue with yearly vaccinations Return to the emergency department if he developed sudden shortness of breath, chest pain, nausea, vomiting, upset stomach or intractable diarrhea Return to the emergency department if you develop fever greater than 100.5 Follow-up with the primary care physician within 1-2 weeks Thank you for [facility] for your healthcare needs Patient Instructions: Hospice Care (GEN), Ascites (DC) Patient Language: Israeli Stand Alone Forms: General Discharge Information Follow-up/Referrals: Laila Amador MD [Primary Care Provider] - 1 Week Discharge Medications: Continued tramadol 50 mg tablet 50 mg PO Q6H PRN (Reason: pain) duloxetine 60 mg capsule,delayed release(DR/EC) 60 mg PO DAILY Qty: 1 0RF ondansetron HCl 8 mg tablet 8 mg PO Q8H PRN (Reason: nausea and vomiting) Qty: 60 0RF pantoprazole 40 mg tablet,delayed release (DR/EC) 40 mg PO BID Qty: 60 2RF lorazepam 0.5 mg tablet 0.5 mg PO BID PRN (Reason: anxiety) Qty: 60 1RF ergocalciferol (vitamin D2) 1,250 mcg (50,000 unit) capsule 1,250 mcg PO .COMPLEX Patient Comments: takes on friday Rx Instructions: 1,250 mcg orally; prucalopride 2 mg tablet 2 mg PO DAILY PRN (Reason: constipation) fluoxetine 20 mg capsule 60 mg PO DAILY Qty: 270 2RF losartan 50 mg tablet 50 mg PO DAILY Qty: 90 1RF Date of admission: 04/27/25 10:01 Primary Care Provider: Laila Amador Admitting Provider: Chip Orlando Attending physician on admission: Chip Orlando Condition: Stable Hospitalist MIPS Heart Failure (Exclusion) Patient has history of Heart Transplant or Left Ventricular Assistive Device?: No IF YES, STOP HERE Heart Failure (Qualifier) Patient has current or prior documentation of LVEF less than or equal to 40%, or mod/servere depressed LVSF?: No IF NO, STOP HERE
[2025-04-28 16:08] LABS: Albumin, Body Fluid 2.1 g/dL (Not Estab.); Glucose, Body Fluid 85 mg/dL (.); LD, Body Fluid 93 IU/L (.)
== END 2025-04-28 13:05 | DRG 436 ==
LOC: ANHED 17:47 → ANH3MEDSUR 18:29
PROVIDERS: Admitting Provider Internal Medicine; Emergency Provider Family Medicine; PCP Family Medicine; Visit Provider Student in an Organized Health Care Education/Training Program
DX: C22.1 Intrahepatic bile duct carcinoma (principal); R18.8 Other ascites; C22.9 Malignant neoplasm of liver, not specified as primary or secondary; I12.9 Hypertensive chronic kidney disease with stage 1 through stage 4 chronic kidney disease, or unspecified chronic kidney disease; N18.9 Chronic kidney disease, unspecified; K21.9 Gastro-esophageal reflux disease without esophagitis; E53.8 Deficiency of other specified B group vitamins; E55.9 Vitamin D deficiency, unspecified; E78.2 Mixed hyperlipidemia; R73.03 Prediabetes; G47.33 Obstructive sleep apnea (adult) (pediatric); G62.9 Polyneuropathy, unspecified; G25.0 Essential tremor; F32.A Depression, unspecified; Z87.891 Personal history of nicotine dependence
CPT/HCPCS: 36415; 49083; 74176; 80048; 80053; 81001; 82042; 82150; 82945; 83605; 83615; 84157; 85025; 85027; 85610; 87205; 88104; 88108; 88305; 89051; 96361; 96374; 96375; 96376; 99285; A9270; G0378; J2270; J2405; J7030